=== PATIENT | female | born 1980 | race Caucasian/White ===

== ENCOUNTER 2016-11-18 21:03 | Emergency (ER) | payer BC, MEDICAID ==
[~2016-11-18] VITALS: Ht 180.3 cm; Wt 136.1 kg
[~2016-11-18 21:03] MED LIST: HYDR12.570 PO; MORP15TA PO; OXYC-272 PO; TOPI100T PO; TRAZ-144 PO
--- OUTSIDE RECORDS SUMMARY | 2016-11-18 21:09 | XMS REPORT | Continuity of Care Document ---
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 Active Medical 02/02/2014 [facility] Hypertension Active Medical 11/29/2013 [facility] Depression. 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/29/2013 [facility] Myofascial pain Active Medical 02/24/2014 [facility] Lumbar post-laminectomy syndrome Active Medical 2014 [facility] Medications Medication Details Route Status Patient Instructions Ordering Provider Order Date Source Zantac Documented 02/07/2014 [facility] ibuprofen Documented 02/07/2014 [facility] Duragesic-12 transdermal film, extended release Active BLACHAR 02/07/2014 [facility] Percocet 10/325 oral tablet Active BLACHAR 02/07/2014 [facility] Celexa 40 mg oral tablet PO Active BLACHAR 02/07/2014 [facility] Celexa 20 mg oral tablet Discontinued BLACHAR 12/22/2013 [facility] trazodone 50 mg oral tablet PO Documented as needed 11/29/2013 [facility] Topamax 100 mg oral tablet PO Documented 11/29/2013 [facility] Percocet 10/325 PO Discontinued 1 to 2 tabs as needed 11/29/2013 [facility] PO [facility] Allergies, Adverse Reactions, Alerts Substance Category Reaction Severity Reaction type Status Date Reported Comments Source NKA Datatype(AL1.2)-Drug Allergy ACTIVE 05/26/2015 [facility] Immunizations Immunization Date Given Site Status Last Updated Comments Source no immunization 11/29/2013 Immunization, History completed [facility] diphtheria/pertussis, acel/tetanus Tdap 11/29/2008 Immunization, History completed [facility] Results Order Name Results Value Reference Range Date Interpretation Comments Source Office/Clinic Notes Office/Clinic Notes [facility] [address] [address] [address] [place] [address] PATIENT: PAM NUÑEZ MR #: [id number] : 1980 DATE SEEN: 05/26/2015 Chief Complaint Patient here for follow up due to low back pain. She is now having neck pain. Rates pain 7/10 throbbing. History of Present Illness This is a 34-year-old female complaining of chronic low back pain. She is now starting to have neck pain over the last 2 months. She tells me she slept on a cough wrong one night, and since then she has been having neck pain. She denies radiation of the pain into the upper extremities, but she does note let arm numbness. Verbal analog score is a 7/10. She is on MS Contin 15 mg 3 times a day as well as Percocet 10 mg every 4 hours as needed. She does note some distal to lower extremity swelling and has asked if I would write for her water pill. She is not taking hydrochlorothiazide any longer. She has yet to find a primary care physician. She denies any chest pain, shortness of breath, nausea, vomiting or diarrhea. She has tried alternating heat and ice to the neck, but it has not given her any relief. She has been taking [id number] ibuprofen as well, which also has not given her much relief. She described her pain as a throbbing sensation, made worse with physical activity and movement. Not much makes it better. She does note constipation on her chronic pain medication regimen, but it is controlled with Dulcolax suppositories. Pain Assessment Cognitive Status: Independent, decisions consistent/reasonable Intensity: 7 Location: Other: neck and low back Acceptable Intensity: 0 Scale Type: Santana-Peralta Faces Pain Scale Time Pattern: Constant Aggravating Factors: Movement Alleviating Factors: Medications, Rest Interventions: Medications, Rest Pain Effects on Appetite: None Pain Effects on Concentration: Mild Pain Effects on Daily Life: Moderate Pain Effects on Emotions: Mild Pain Effects on Relationships: None Pain Effects on Sleep: Moderate Pain Effects on Work/School: Moderate Pain Best: 6 Pain Worst: 10 Review of Systems Allergies NKA Current Medications Celexa 40 mg oral tablet (citalopram), 40 mg, Daily hydrochlorothiazide 25 mg oral tablet (hydrochlorothiazide), 25 mg, Every 24 hours ibuprofen, PRN, MS Contin 15 mg/12 hr oral tablet, extended release (morphine), 1 Tab PO in a.m. and 2 Tabs PO at Bedtime, Comment: may fill 05/09/15 Percocet 10/325 oral tablet (acetaminophen-oxycodone), 1 Tab, PRN, Every 4 hours , Comment: 28 day scriptsmay fill 04/26/15 Topamax 100 mg oral tablet (topiramate), 100 mg, At bedtime trazodone 50 mg oral tablet (trazodone), 50 mg, At bedtime Zantac (ranitidine), PRN, Social History Alcohol Use: Denies Caffeine Use: Current Caffeine Type: Soda, Tea Current Tobacco Usage: Current Recreational Drug Use: Denies Smoking Status: Smokes daily Physical Examination TEMP BP Pulse RR MAP O2 Sat 37.0 175/96 82 16 122.33 Blood Pressure Location: Left arm Weight Height BMI BSA 177 cm A well developed, well nourished female in no apparent distress. She is alert and oriented x3. She is obese. Strength is intact for the upper and lower extremities bilaterally. She is noted to have neck spasm. There is +2 pitting edema to the distal lower extremities. Impression 1. Postlaminectomy syndrome, lumbar region (722.83). 2. Lower extremity edema. 3. Myofascial neck pain. 4. Lumbar spondylosis. Plan Medication changes this visit: Refill MS Contin 15 mg/12 hr oral tablet, extended release, See Instructions, Quantity : 84, Refills: 0, Comment: may fill 08/01/15 Percocet 10/325 oral tablet, 1 Tab, PRN, Q4H, Quantity: 168, Refills: 0, Comment : 28 day scripts MAY FILL 07/21/15 1. I think it would be reasonable to put her on Baclofen. 2. I will ask her to see a primary care physician, since she needs to have her general health issues addressed. The patient also has hypertension, depression and obesity. 3. Unfortunately, I will not be able to keep seeing this patient on an ongoing basis for her pain management care. Patient now lives in [facility] which is over 2 hours from [place], [place]. She actually lives about 40-45 minutes from [place], [place], where there are pain clinics present. She also must pass by 4 or 5 pain clinics to get to us through [place]. I do not feel comfortable managing her pain care from that far away. I have offered to provide her with weaning prescriptions, but she does not want to do so. I will give her 3 months postdated of her opioid medications and will not see her again, unless she moves closer to us. TR: [id number] FÉLIX#: [id number] [Electronically Signed on 06.01.2015 02:50 PM] Chris Randle MD </br> 05/26/2015 [Electronically Signed on 06.01.2015 02:50 PM] Chris Randle MD [facility] Office/Clinic Notes Office/Clinic Notes [facility] [address] [place] [address] [address] [place] [address] PATIENT: PAM NUÑEZ MR #: [id number] : 1980 DATE SEEN: 02/01/2015 Chief Complaint Patient is here today to follow up on her back pain. She rates her pain 7/10 sharp pain. History of Present Illness This is a pleasant 34-year-old female chiefly complaining of back pain. Verbal analog score is a 7/10. She continues to be on MSContin 15 mg 1 in the morning and 2 at night, as well as Percocet 10 mg every 4 hours as needed and Topamax. She feels these do provide the patient with improved analgesia and improved functioning with ADLs. Pain Assessment Cognitive Status: Independent, decisions consistent/reasonable Intensity: 7 Location: Lower back Acceptable Intensity: 5 Scale Type: 0-10 Pain scale Time Pattern: Constant Quality: Sharp Radiating: None Associated Symptoms: None Aggravating Factors: All activity, Movement Alleviating Factors: Medications, Rest Interventions: Medications, Rest, Repositioning Pain Effects on Appetite: None Pain Effects on Concentration: None Pain Effects on Daily Life: Moderate Pain Effects on Emotions: Moderate Pain Effects on Relationships: None Pain Effects on Sleep: Moderate Pain Effects on Work/School: None Pain Best: 4 Pain Worst: 10 Allergies NKA Current Medications Celexa 40 mg oral tablet (citalopram), 40 mg, Daily hydrochlorothiazide 25 mg oral tablet (hydrochlorothiazide), 25 mg, Every 24 hours ibuprofen, PRN, MS Contin 15 mg/12 hr oral tablet, extended release (morphine), 1 Tab PO in a.m. and 2 Tabs PO at Bedtime, Comment: may fill 01/17/15 Percocet 10/325 oral tablet (acetaminophen-oxycodone), 1 Tab, PRN, Every 4 hours , Comment: MAY FILL 01/04/15 Topamax 100 mg oral tablet (topiramate), 100 mg, At bedtime trazodone 50 mg oral tablet (trazodone), 50 mg, At bedtime Not taking Zantac (ranitidine), PRN, Social History Alcohol Use: Denies Caffeine Use: Current Caffeine Type: Soda, Tea Current Tobacco Usage: Current Education: High school Recreational Drug Use: Denies Smoking Status: Smokes daily Physical Examination TEMP BP Pulse RR MAP O2 Sat 37.0 150/85 75 18 106.67 Blood Pressure Location: Left arm Weight Height BMI BSA 177 cm The patient is well developed, well nourished and in no apparent distress. Alert and oriented x3. Strength is intact for the upper and lower extremities bilaterally. Impression 1. Postlaminectomy syndrome, lumbar region (722.83). 2. Lumbar spondylosis. 3. Obesity. Plan 1. At this time, we will continue the patient's usual pain medication regimen. 2. We will see the patient back in 3 months and assess the patient's progress at that time. All questions were answered otherwise. Medication changes this visit: Refill Celexa 40 mg oral tablet, 40 mg, daily, Quantity: 30, Refills: 5 MS Contin 15 mg/12 hr oral tablet, extended release, See Instructions, Quantity : 84, Refills: 0, Comment: may fill 04/11/15 Percocet 10/325 oral tablet, 1 Tab, PRN, Q4H, Quantity: 168, Refills: 0, Comment : 28 day scripts may fill 03/29/15 TR: JULIUS FÉLIX#: [id number] [Electronically Signed on 02.03.2015 03:26 PM] Chris Randle MD </br> 02/01/2015 [Electronically Signed on 02.03.2015 03:26 PM] Chris Randle MD [facility] Office/Clinic Notes Office/Clinic Notes [facility] [address] [place] [phone] PATIENT: PAM NUÑEZ MR #: [id number] : 1980 DATE SEEN: 11/03/2014 Chief Complaint Patient in today for a followup on pain in low back. Rates pain 6/10, aching. History of Present Illness This is a pleasant 33-year-old female complaining of chronic low back pain. Verbal analog score is a 6/10. She continues to be on Percocet 10 mg every 4 hours as needed, which does provide her with improved analgesia and improved function with ADLs. She is also Topamax at bedtime and MS Contin 15 mg in the morning and 30 mg at night. She states overall, her current pain medication regimen does provide her with improved analgesia and improved function with ADLs. Pain Assessment Cognitive Status: Independent, decisions consistent/reasonable Intensity: 6 Location: Lower back Laterality: Bilateral Acceptable Intensity: 3 Scale Type: Santana-Peralta Faces Pain Scale Time Pattern: Constant Onset: Gradual Quality: Aching Radiating: None Associated Symptoms: None Aggravating Factors: All activity, Lying down, Sitting, Standing, Walking Alleviating Factors: Medications Interventions: Medications Pain Effects on Appetite: None Pain Effects on Concentration: None Pain Effects on Daily Life: Moderate Pain Effects on Emotions: Mild Pain Effects on Relationships: None Pain Effects on Sleep: Moderate Pain Effects on Work/School: Mild Pain Best: 5 Pain Worst: 10 Allergies NKA Current Medications Celexa 40 mg oral tablet (citalopram), 40 mg, Daily Duragesic-12 transdermal film, extended release (fentanyl), 1 Patch, Every 72 hours, Comment: 2 week trial script, next appt 02/22/14 in [place] Not taking hydrochlorothiazide 25 mg oral tablet (hydrochlorothiazide), 25 mg, Every 24 hours ibuprofen, PRN, Percocet 10/325 oral tablet (acetaminophen-oxycodone), 1 Tab, PRN, Every 4 hours , Comment: May fill 02/15/14 to 02/22/14 appt in [place] Topamax 100 mg oral tablet (topiramate), 100 mg, At bedtime trazodone 50 mg oral tablet (trazodone), 50 mg, At bedtime Zantac (ranitidine), PRN, Social History Alcohol Use: Denies Caffeine Use: Current Caffeine Type: Soda, Tea Current Tobacco Usage: Current Recreational Drug Use: Denies Smoking Status: Smokes daily Physical Examination TEMP BP Pulse RR MAP O2 Sat 36.6 147/89 101 20 108.33 Blood Pressure Location: Left arm Weight Height BMI BSA 177 cm A well developed, well nourished, obese female in no apparent distress. She is alert and oriented x3. Strength is intact for the upper and lower extremities bilaterally. Impression 1. 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 Lumbar Spondylosis. (721.3) 4. Myofascial pain (729.1) 5. Post lumbar laminectomy syndrome. 6. Depression. Plan Medication changes this visit: Refill Percocet 10/325 oral tablet, 1 Tab, PRN, Q4H, Quantity: 168, Refills: 0, Comment : MAY FILL 01/04/15 Stopped Duragesic-12 transdermal film, extended release, 1 Patch, Q72H, Quantity: 5, Refills: 0, Comment: 2 week trial script, next appt 02/22/14 in [place] At this time, will continue her usual pain medication regimen. We are now starting to see her here in our office at [place], [place], since she has moved to [place], [place]. Will see her back in 3 month for further care. TR: [id number] FÉLIX#: [id number] [Electronically Signed on 11.09.2014 03:43 PM] Chris Randle MD </br> 11/03/2014 [Electronically Signed on 11.09.2014 03:43 PM] Chris Randle MD [facility] Office/Clinic Notes Office/Clinic Notes [address] [address] RE: PAM NUÑEZ MR #: [id number] : 1980 DATE SEEN: 08/16/2014 This is a pleasant 33-year-old female complaining of low back pain. Verbal analog score is a 6/10. She describes the pain as a throbbing sensation. The patient states that cold and weather changes as well as physical activity and movement exacerbates the pain. It is made better with rest and pain medication as well. She is on Topamax, Trazodone, Celexa, MS Contin 15 mg every 8 hours and Percocet 10 mg up to 6 a day p.r.n. She denies any side effects to her pain medication regimen. It does provide her with improved analgesia and improved function with ADLs. However, she states her recent addition of MS Contin initially did help with her pain, but now it is not as effective as it once was. She tells me she recently moved to [place], [place] and now wants to be seen at [place], [place] in our office there. ALLERGIES: NO KNOWN DRUG ALLERGIES. PAST SOCIAL HISTORY: She smokes half pack of cigarettes a day. Denies alcohol use. REVIEW OF SYSTEMS: Neuro as above. Respiratory, cardiac, GI, psych negative. PHYSICAL EXAMINATION: Well-developed, well-nourished female in no apparent distress. She is alert and oriented x3. Strength intact in upper and lower extremities bilaterally. ASSESSMENT: 1. Lumbar spondylosis. 2. Post-lumbar laminectomy syndrome. 3. Myofascial low back pain. PLAN: 1. I would ask her to change MS Contin dosing to 15 mg in the morning, 30 mg at night, which may give her improved pain control. Monitor for sedation, constipation, and nausea. 2. We will continue Percocet at current dosing levels and the rest of her pain medication at current dosing levels. 3. We will see the patient back in [place] in the near future and assess her progress at that time. Dictated By: CHRIS RANDLE MD DICTATED BY: Chris Randle. cc: [facility] - Dr Randle TR: [id number] DR: 08/16/2014 09:17 DE: 08/16/2014 10:49 JOB#: [id number] [Electronically Signed on 08.18.2014 05:22 PM] Chris Randle MD </br> 08/16/2014 [Electronically Signed on 08.18.2014 05:22 PM] Chris Randle MD [facility] Office/Clinic Notes Office/Clinic Notes [address] [address] RE: PAM NUÑEZ MR #: [id number] : 1980 DATE SEEN: 04/12/2014 This is a pleasant 33-year-old obese female complaining of chronic low back pain. Verbal analog score is a 5/10. She describes the pain as a tender sensation. It is made worse with walking and standing for any length of time. It is made better with pain medication and rest. She continues to be on Percocet 10 mg up to 6 a day p.r.n., Duragesic patches 25 mcg to be changed every 3 days, Celexa, trazodone, and Topamax. She tells me that Duragesic patches are not sticking well at all. One of these fell off her this morning. She has tried tape over these, but the tape irritates her skin, and these will not stick to her. Currently, she has an upper respiratory infection with coryza and congestion. She denies any productive cough, fever, chills, nausea, vomiting , or diarrhea. ALLERGIES: NO KNOWN DRUG ALLERGIES. PAST SOCIAL HISTORY: She smokes approximately half pack of cigarettes a day. Denies alcohol use. REVIEW OF SYSTEMS: Neuro as above. Respiratory, cardiac, GI, and psych negative. PHYSICAL EXAMINATION: Well-developed, well-nourished, obese female in no apparent distress. She is alert and oriented x3. Strength intact to lower extremities bilaterally. ASSESSMENT: 1. Lumbar spondylosis. 2. Post-lumbar laminectomy syndrome. 3. Myofascial low back pain. PLAN: 1. We will discontinue Duragesic patch secondary to inability to make the patches stick to her skin. I have asked her to return the remaining patches for destruction. 2. In the meantime, we will start her on low-dose MS Contin mop. Monitor for sedation, constipation, and nausea. She can continue Percocet for breakthrough pain. We will continue the rest of her usual pain medication regimen. We will see the patient back in the near future and assess her progress at that time. All questions have been answered otherwise. Dictated By: CHRIS RANDLE MD DICTATED BY: Chris Randle cc: [facility] - Dr Randle TR: [id number] DR: 04/12/2014 16:50 DE: 04/13/2014 00:21 JOB#: [id number] [Electronically Signed on 04.16.2014 04:17 PM] Chris Randle MD </br> 04/12/2014 [Electronically Signed on 04.16.2014 04:17 PM] Chris Randle MD [facility] Amb Nurs Intake Event Amb Nurs Intake Event 2013 [facility] Procedure Reports Procedure Reports [facility] [address] [place] [address], [address] [place] [address] [facility] PATIENT: PAM NUÑEZ MR #: [id number] PCP: None, Stated REFERRING PHYSICIAN: Dina Nj MD : 1980 DATE SEEN: 02/24/2014 PROCEDURE REPORT Procedure: Ultrasound-guided injection of the right lumbar region for myofascial pain. Pre-procedure Diagnosis: Lumbar myofascial pain and trigger point tenderness. Post-procedure Diagnosis: Lumbar myofascial pain and trigger point tenderness. Informed Consent: I discussed the risks, benefits, alternatives. Following denial of allergy and review of potential side effects and complications including but not necessarily limited to infection, allergic reaction, local tissue breakdown, systemic side effects of corticosteroids, elevation of blood glucose, injury to soft tissue and/or nerves. Specifically discussed risks of tissue breakdown. All questions were answered and consent was given. The patient verbalized understanding. Ultrasound Guidance: The use of direct ultrasound visualization of the needle was indicated to increase patient safety, improve clinical effectiveness and allow for higher diagnostic specificity when evaluating for the effectiveness of the injection. Procedure details: The procedure was carried out under sterile technique. After the area was cleaned the 3.5-inch 25-gauge needle was directed towards the PSIS (posterior superior iliac spine) region in the right lower lumbar region. The L4 and L5 paraspinals were injected as well as the periligamentous region of the PSIS area. Following negative aspiration, a mixture of 1 mL of Kenalog with 3 mL of 1% lidocaine was injected. The patient tolerated the procedure without complication and was observed briefly before leaving. Patient will call us to let us know how she has responded to this injection. Diagnosis: Ultrasound-guided injection of the lumbar myofascial pain and trigger point tenderness. TR: ADA FÉLIX#: [id number] [Electronically Signed on 03.02.2014 08:16 AM] Dina Nj MD </br> 02/24/2014 [Electronically Signed on 03.02.2014 08:16 AM] Dina Nj MD [facility] Office/Clinic Notes Office/Clinic Notes [address] [address] RE: PAM NUÑEZ MR #: [id number] : 1980 DATE SEEN: 02/22/2014 Pam returned to the office chief complaining of chronic low back pain. Verbal analog score is a 6/10. She describes the pain as a throbbing sensation. It is made better with rest and pain medication is made worse with physical activity and weather changes. She has seen Dr. Nj recently who is going to do trigger point injections this week's time under ultrasound guidance as I understand. She is on Percocet 10 mg 6 a day p.r.n., trazodone, Topamax, Celexa and Duragesic patch 12 mcg to be changed every 3 days. She states that she does well, and with this medication does provide her with good analgesia until it wears off after about a day and a half. She denies any side effects. ALLERGIES: NO KNOWN DRUG ALLERGIES. PAST SOCIAL HISTORY: She smokes half pack of cigarettes a day. Denies alcohol use. REVIEW OF SYSTEMS: Neuro, respiratory, cardiac, GI, psych negative. PHYSICAL EXAMINATION: Well developed, well-nourished, obese female in no apparent distress. She is alert and oriented x3. Strength intact to lower extremities bilaterally. ASSESSMENT: 1. Myofascial low back pain. 2. Lumbar spondylosis. 3. Post-lumbar laminectomy syndrome. PLAN: 1. We will increase Duragesic patch to 25 mcg to be changed every 3 days. Monitor for sedation, constipation, and nausea. 2. We will continue the rest of her usual pain medication regimen. We will see the patient back in the near future and assess the patient's progress at that time. All questions have been answered otherwise. Dictated By: CHRIS RANDLE MD DICTATED BY: Chris Randle cc: [facility] - Dr Randle TR: [id number] DR: 02/22/2014 16:02 DE: 02/22/2014 21:54 JOB#: [id number] [Electronically Signed on 03.12.2014 01:48 PM] Chris Randle MD </br> 02/22/2014 [Electronically Signed on 03.12.2014 01:48 PM] Chris Randle MD [facility] Coding Summary Coding Summary CODING DATE: 02/21/2014 [facility] STATUS: Home PAYOR: Medicaid ADMIT DX: REASON FOR VISIT DX: 724.2 LUMBAGO FINAL DX: PRINCIPAL: 722.52 Degeneration of Lumbar or Lumbosacral Intervertebral Disc SECONDARY: PROCEDURES DOCTOR NAME DATE NOTE: The code number assigned matches the documented diagnosis and / or procedure in the patient's chart. However, the narrative phrase printed from the coding software may appear abbreviated, or result in slightly different terminology. Coded By: Taya Vega Date Saved: 02/21/2014 02:37 pm 02/21/2014 [facility] DX Lumbar Complete W/Bending DX Lumbar Complete W/ Bending PAM NUÑEZ LUMBAR SPINE INDICATION: Low back pain. Multiple images of the lumbar spine have been obtained with flexion and extension views. Bone density and the pedicles are intact. There is a small rudimentary rib on the right at T12. There is a transitional segment with rudimentary L5-S1 disk. The L4-5 disk is narrowed with osteophytes. Minimal anterior lipping is identified at L2 and 3. No subluxation is seen across flexion and extension views. IMPRESSION: 1. No wedging or subluxation. 2. Marked narrowing of the L4-5 disk, rudimentary L5-S1 disk. Final Report Dictated By: Juan M Shaw MD Dictated Dt/tm: 02/07/2014 15:05 Signed By: Juan M Shaw MD Signed Dt/tm: 02/07/2014 15:25 Transcribed By: CHRISTIE Transcribed Dt/tm: 02/07/2014 15:23</br> Clinical History Current History LBP x3 years, Rt leg tingling/numbness Previous History/Surgery 2005, 2010 lumbar sx 02/07/2014 Final Report Dictated By: Juan M Shaw MD Dictated Dt/tm: 02/07/2014 15:05 Signed By: Juan M Shaw MD Signed Dt/tm: 02/07/2014 15:25 Transcribed By: CHRISTIE Transcribed Dt/tm: 02/07/2014 15:23 [facility] Care Ambulatory Depart Summary Ambulatory Depart Summary [facility] [address] [address] [address] [place] [id number] PERSON INFORMATION Name PAM NUÑEZ Age 33 Years 1980 12:00 AM Sex Female Language Tamazight PCP None, Stated Marital Status Time Zone Visit Id Visit Reason EVAL FOR USGI LUMBAR/ Specialty Enc Type [facility] Med Service OUTPT-Outpatient/Hospital Referred by [facility] Discharge Process Discharge Tracking Id Checkout Checkin Acuity Dispo Type Arrival 02/07/2014 12:47 PM Reg Status LOS Address: [facility] [address] PHYS DOC NOTES PROVIDER INFORMATION VITALS INFORMATION Height: 5ft 9.7in Weight: 339.07 lbs (BMI: 49.1) Temp: 99.5 F Heart Rate: 111 Respiratory: 16 O2 Sat: BP: 150/89 LOCATION INFORMATION Arrival Nurse Unit Room Bed ORDERS INFORMATION Start Time Order Type Status Stop Time Provider 02/07/2014 1:25 PM Follow Up -Request Patient Care -Request Completed 02/07/2014 1:41 PM Dina Nj MD MEDICAL INFORMATION Allergy Info: NKA HOME MEDICATIONS Celexa 40 mg oral tablet 40 mg, Oral, Daily, 2 Refills Duragesic-12 transdermal film, extended release 1 Patch, Topical, Every 72 hours, 2 week trial script, next appt 02/22/14 in [place] ibuprofen , as needed for pain Percocet 10/325 oral tablet 1 Tab, Oral, Every 4 hours, as needed for pain, May fill 02/15/14 to 02/22/14 appt in [place] Topamax 100 mg oral tablet 100 mg, Oral, At bedtime trazodone 50 mg oral tablet 50 mg, Oral, At bedtime, as needed Zantac , as needed, for Indigestion DISCHARGE INFORMATION Discharge Disposition: Discharge Location: PATIENT EDUCATION INFORMATION Instructions: CHRONIC PAIN Follow up: With: Address: When: Please arrive 20 minutes prior to appointment. 02/24/14 15:00:00 Comments: With: Address: When: Dina Nj [facility], [address] [place] [address], [place], [place] [id number] Business (1) Comments: DIAGNOSIS Myofascial pain 02/07/2014 [facility] Quality of Life Scale Score Grid Quality of Life Scale Score Grid 7 02/07/2014 [facility] Amb Nurs Intake Event Amb Nurs Intake Event 2013 [facility] Ambulatory Depart Summary Ambulatory Depart Summary [facility] [address] [place] [address] [address] [place] [address] PERSON INFORMATION Name PAM NUÑEZ Age 33 Years 1980 12:00 AM Sex Female Language Tamazight PCP None, Stated Marital Status Time Zone N [id number] Visit Id Visit Reason FOLLOW UP, TS Specialty Enc Type [facility] Med Service OUTPT-Outpatient/Hospital Referred by [facility] Discharge Process Discharge Tracking Id Checkout Checkin Acuity Dispo Type Arrival 02/07/2014 10:32 AM Reg Status LOS Address: [address] [place] [address] PHYS DOC NOTES PROVIDER INFORMATION VITALS INFORMATION Height: 5ft 9.7in Weight: Temp: 98.2 F Heart Rate: 98 Respiratory: 20 O2 Sat: BP: 158/81 LOCATION INFORMATION Arrival Nurse Unit Room Bed ORDERS INFORMATION Start Time Order Type Status Stop Time Provider 02/07/2014 10:47 AM Nursing PBB Level 2 (83-61)- [address] CFPM Evaluation and Management Completed 02/07/2014 10:47 AM Chris Randle MD MEDICAL INFORMATION Allergy Info: NKA HOME MEDICATIONS Celexa 40 mg oral tablet 40 mg, Oral, Daily, 2 Refills, [facility] Duragesic-12 transdermal film, extended release 1 Patch, Topical, Every 72 hours, 2 week trial script, next appt 02/22/14 in [place], Printed Percocet 10/325 oral tablet 1 Tab, Oral, Every 4 hours, as needed for pain, May fill 02/15/14 to 02/22/14 appt in [place], Printed Topamax 100 mg oral tablet 100 mg, Oral, At bedtime trazodone 50 mg oral tablet 50 mg, Oral, At bedtime, as needed DISCHARGE INFORMATION Discharge Disposition: Discharge Location: PATIENT EDUCATION INFORMATION Instructions: Back Basics: A Healthy Spine Follow up: With: Address: When: Chris Randle [address] [address] [address] [place], [place] [id number] Business (1) [facility], [address] [place] [address], [place] [address] Business (1) 02/22/2014 13:30:00 Comments: FOLLOW UP IN [place] DIAGNOSIS Lumbar Spondylosis. 02/07/2014 [facility] Ambulatory Depart Summary Ambulatory Depart Summary [facility] [address] [address] [address] [place] [address] PERSON INFORMATION Name PAM NUÑEZ Age 33 Years 1980 12:00 AM Sex Female Language Tamazight PCP None, Stated Marital Status Time Zone Visit Id Visit Reason FOLLOW UP, TS Specialty Enc Type [facility] Med Service OUTPT-Outpatient/Hospital Referred by [facility] Clinic Discharge Process Discharge Tracking Id Checkout Checkin Acuity Dispo Type Arrival 02/07/2014 10:32 AM Reg Status LOS Address: [address] [place] [address] PHYS DOC NOTES PROVIDER INFORMATION VITALS INFORMATION Height: 5ft 9.7in Weight: Temp: 98.2 F Heart Rate: 98 Respiratory: 20 O2 Sat: BP: 158/81 LOCATION INFORMATION Arrival Nurse Unit Room Bed ORDERS INFORMATION Start Time Order Type Status Stop Time Provider 02/07/2014 10:47 AM Nursing PBB Level 2 (2140)- [address] CFPM Evaluation and Management Completed 02/07/2014 10:47 AM Chris Randle MD MEDICAL INFORMATION Allergy Info: NKA HOME MEDICATIONS Celexa 20 mg oral tablet 20 mg, Oral, Daily, next script increase to 40mg daily Percocet 10/325 1 Tab, Oral, Every 4 hours, 1 to 2 tabs as needed Topamax 100 mg oral tablet 100 mg, Oral, At bedtime trazodone 50 mg oral tablet 50 mg, Oral, At bedtime, as needed DISCHARGE INFORMATION Discharge Disposition: Discharge Location: PATIENT EDUCATION INFORMATION Instructions: Back Basics: A Healthy Spine Follow up: With: Address: When: Chris Randle [address] [address] [address] [place] [address] Business (1) [facility], [address] [place] [address], [place] [address] [facility] (1) 02/22/2014 13:30:00 Comments: FOLLOW UP IN [place] DIAGNOSIS Lumbar Spondylosis. 02/07/2014 [facility] Office/Clinic Notes Office/Clinic Notes [facility] [address] [facility] [address] [place] [address] PATIENT: PAM NUÑEZ MR #: [id number] PCP: None, Stated REFERRING PHYSICIAN: Chris Randle MD : 1980 DATE SEEN: 02/07/2014 Chief Complaint Pam is here today for an evaluation for low back pain. History of Present Illness Ms. Nuñez is a 33-year-old female with a complicated spine history. She had a surgery in 2005 for a herniated disc in the lumbar spine and then she had a surgery in 2010 again for a herniated disc. She has seen a Dr. Huang, in [place], [place], for this and followed up with him because she was continuing to have pain in the lumbar spine following the surgery. He did not feel there was any other operative measures. A repeat MRI of her back showed some facet arthropathy, however there was no recurrent herniations and therefore she was referred to Chris Randle MD, who attempted to treat the facet component of her pain. She had tried bilateral facet joint injections , but she got no relief from those. She has tried a variety of muscle relaxants for myofascial discomfort as well and that has not seemed to help. She has tried physical therapy, but she says she would be interested in some water exercises, she is trying to do some of the land based physical therapy exercises that have been provided to her. She has attempted to lose weight as well. None of these things have seemed to help her pain. She has been started on Cymbalta without much effect. Because she has significant component of myofascial discomfort, Dr. Randle recommended a referral to see if treatment of the myofascial pain might help. Patient denies any lower extremities symptoms, weakness, numbness, or tingling currently, but her pain is quite severe and it is axial. It is band like, worse on the right than the left. It is not seeming to be controlled with the Percocet , Duragesic, ibuprofen, or Topamax medications that she has tried. She has tried also topical medicines. Her pain is rated at 7/10. QOL (quality of life) is 7/10. PEG scores are 7, 7, and 8 respectively. There are no red flag signs or symptoms present. Pain Assessment Cognitive Status: Independent, decisions consistent/reasonable Intensity: 7 Location: Lower back Quality: Stabbing, Other: twisting Review of Systems Cardiovascular: Swelling of hands or feet Musculoskeletal: Back Pain, Muscle or joint pain Neurological: Numbness, Tingling Pertinent negative for the following system(s): Constitutional, HEENT, Respiratory, GI, , [employer], Integumentary, Hematologic, Endocrine, Psychiatric Allergies NKA Current Medications Celexa 40 mg oral tablet (citalopram), 40 mg, Daily Duragesic-12 transdermal film, extended release (fentanyl), 1 Patch, Every 72 hours, Comment: 2 week trial script, next appt 02/22/14 in [place] ibuprofen, PRN, Percocet 10/325 oral tablet (acetaminophen-oxycodone), 1 Tab, PRN, Every 4 hours , Comment: May fill 02/15/14 to 02/22/14 appt in [place] Topamax 100 mg oral tablet (topiramate), 100 mg, At bedtime trazodone 50 mg oral tablet (trazodone), 50 mg, At bedtime Zantac (ranitidine), PRN, Problems and Past Medical History Active Depression. Hypertension LBP (Low Back Pain) Lumbar Spondylosis.: Onset on 11/29/2013. Under care of sign painter Family History Crohn disease.. Sister/Brother Lung cancer.. Grandparent Procedure History 2 back surgeries 2 c sections Social History Alcohol Use: Denies Caffeine Use: Current Caffeine Type: Soda, Tea Cigarette Use Packs/Day: 0.5 pack per day Current Tobacco Usage: Current Recreational Drug Use: Denies Smoking Status: Smokes daily Tobacco Type: Cigarettes Physical Examination TEMP BP Pulse RR MAP O2 Sat 37.5 150/89 111 16 109.33 Blood Pressure Location: Left arm Oxygen Therapy: Room air Weight Height BMI BSA 153.8 kg (339.07 lbs) 177 cm 49.1 kg/m2 2.7499 m2 Scale: Standing digital Vitals: As noted above. General: This is an obese female in no acute distress. Mental status: Alert and oriented x3, conversant with appropriate mood and affect. NEUROLOGIC: Gait/Gross Motor: Gait reveals normal tiffany and stride. Heel and toe walking are normal. Balance: Grossly normal including tandem gait, and Romberg testing. Coordination: Coordination is grossly normal in the upper and lower extremities , including finger nose finger and rapid alternating movements. Strength: Major muscle groups of the bilateral upper and lower limbs demonstrate normal strength, bulk and tone. Sensation: Sensation is grossly intact to light touch in the lower extremities. Reflexes: Physiological without evidence of pathological reflexes (including Babinski response). MUSCULOSKELETAL: Spine: There are no gross axial deformities. Percussion of the spine is negative. She does have a prior well healed surgical scar. Tenderness to palpation over the right PSIS region. She is markedly tender there. She has pain with forward flexion, but extension seems to be worse as well. Right-sided bending is also painful for her. Inspection/Palpation: Inspection and palpation of the limbs and spine are unremarkable. Range of Motion: Range of motion is within functional limits in the major joints of the bilateral upper and lower limbs without obvious instability or laxity, including the hips. Joints: There are no obvious effusions, instability, or laxity in the major joints of the bilateral upper or lower limbs. Lymph: Palpation of lymph nodes was unremarkable bilaterally. Skin: Inspection of the skin is negative for erythema, breakdown, or concerning lesions of the limbs, neck, and spine. Pulmonary: Breathing is unlabored and without use of accessory muscles. DATA: Pertinent labs, imaging studies and medical history were reviewed. I reviewed her prior MRI report showing only mild facet arthropathy, no significant stenosis. Impression 1. Myofascial pain (729.1) 2. LBP (Low Back Pain) (724.2) Plan Orders this visit: Follow Up -Request 1. I would recommend treatment of myofascial component of her pains and she has been refractory to the other treatments. I discussed with her some muscle relaxants, such as tizanidine, however it can cause arrhythmias in combination with Celexa. She feels that baclofen is too strong, so we will hold off. 2. I would recommend an ultrasound guided injection into the right lower lumbar region. 3. We will provided her with some of the water exercises that she can do on her own, as she does have a pool. I also spent a good deal of time discussing with her, the value of keeping the weight off and regularly walking. 4. I would like to get a flexion and extension x-ray of her spine to exclude any instability. Please feel free to call me with any questions. Thank you very much for this consultation. Sincerely, Dina Nj MD CC: Chris Randle MD TR: [id number] FÉLIX#: [id number] [Electronically Signed on 02.10.2014 03:03 PM] Dina Nj MD </br> 02/07/2014 [Electronically Signed on 02.10.2014 03:03 PM] Dina jN MD [facility] Amb Nurs Intake Event Amb Nurs Intake Event 2013 [facility] Office/Clinic Notes Office/Clinic Notes [facility] [address] [place] [address] [address] [place] [id number] PATIENT: PAM NUÑEZ MR #: [id number] : 1980 DATE SEEN: 02/07/2014 Chief Complaint Patient in today for a follow up on pain in low back and right leg. Rates pain 7 /10 stabbing. History of Present Illness This is a 33-year-old obese female chiefly complaining of low back and right leg pain. VAS (verbal analog score) is a 7/10. It is a stabbing sensation that is made worse with physical activity and movement; it is made somewhat better with pain medication and rest. The patient is on percocet 10 mg every 4 hours as needed, as well as Celexa 20 mg daily, Topamax 100 mg at bedtime and trazodone 50 mg at bedtime. She denies any side effects to her pain medication regimen. It does give her some degree of pain relief, although she does experience end of dose failure on percocet. She is seeing Sancho, our application packaging specialist, now for direction regarding a home exercise program. She does have an appointment to see Dr. Dina Nj today at 12:45. Physical activity and movement exacerbate her pain; it is made better with pain medication and rest. Pain Assessment Cognitive Status: Independent, decisions consistent/reasonable Intensity: 7 Location: Lower back Acceptable Intensity: 4 Scale Type: Santana-Peralta Faces Pain Scale Time Pattern: Constant Onset: Gradual Quality: Stabbing Radiating: Right Radiation Location: Upper leg, Lower leg Associated Symptoms: None Aggravating Factors: All activity, Movement, Standing, Walking Alleviating Factors: Medications, Rest Interventions: Medications, Rest Pain Effects on Appetite: None Pain Effects on Concentration: Mild Pain Effects on Daily Life: Moderate Pain Effects on Emotions: Mild Pain Effects on Relationships: None Pain Effects on Sleep: Moderate Pain Effects on Work/School: Moderate Pain Best: 5 Pain Worst: 10 Allergies NKA Current Medications Celexa 20 mg oral tablet (citalopram), 20 mg, Daily, Comment: next script increase to 40mg daily Percocet 10/325 (acetaminophen-oxycodone), 1 Tab, Every 4 hours Topamax 100 mg oral tablet (topiramate), 100 mg, At bedtime trazodone 50 mg oral tablet (trazodone), 50 mg, At bedtime Social History Alcohol Use: Denies Caffeine Use: Current Caffeine Type: Soda, Tea Cigarette Use Packs/Day: 0.5 pack per day Current Tobacco Usage: Current Recreational Drug Use: Denies Smoking Status: Smokes daily Tobacco Type: Cigarettes Physical Examination TEMP BP Pulse RR MAP O2 Sat 36.8 158/81 98 20 106.67 Blood Pressure Location: Right arm Weight Height BMI BSA 177 cm General: The patient is a well-developed, well-nourished female in no apparent distress. Alert and oriented times 3. Neck: Supple, full range of motion. HEENT: Within normal limits. Skin: Dry and intact. Lungs: Clear. Heart: Regular in rate and rhythm. Abdomen: Positive bowel sounds, soft. Extremities: No clubbing, cyanosis or edema. Neurologic: Strength intact in the lower extremities bilaterally. Sensation is intact for upper and lower extremities. Impression 1. Lumbar Spondylosis. (721.3) 2. Post lumbar laminectomy syndrome 3. Chronic low back pain 4. Depression Plan 1. Increase Celexa to 40 mg daily as an antidepressant, which may give her some degree of pain relief as well. 2. We will start the patient on Duragesic patch at low dosage. Monitor for sedation, constipation and nausea. Medication changes this visit: New Celexa 40 mg oral tablet, 40 mg, daily, Quantity: 30, Refills: 2 Duragesic-12 transdermal film, extended release, 1 Patch, Q72H, Quantity: 5, Refills: 0, Comment: 2 week trial script, next appt 02/22/14 in [place] Percocet 10/325 oral tablet, 1 Tab, PRN, Q4H, Quantity: 48, Refills: 0, Comment : May fill 02/15/14 to 02/22/14 appt in [place] Stopped Celexa 20 mg oral tablet, 20 mg, daily, Quantity: 30, Refills: 0, Comment: next script increase to 40mg daily Percocet /, 1 Tab, Q4H, Refills: 0 We will see the patient back in the near future and continue percocet for breakthrough pain. All questions have been answered otherwise. TR: JULIUS FÉLIX#: [id number] [Electronically Signed on 02.11.2014 12:58 PM] Chris Randle MD </br> 02/07/2014 [Electronically Signed on 02.11.2014 12:58 PM] Chris Randle MD [facility] Ambulatory Depart Summary Ambulatory Depart Summary [facility] [address] [place] [address] [address] [place] [address] PERSON INFORMATION Name PAM NUÑEZ Age 33 Years 1980 12:00 AM Sex Female Language Tamazight PCP Chris Randle MD Marital Status Time Zone N [id number] Visit Id Visit Reason bilat L4-5, L5-S1 Facet Injections Specialty Enc Type [facility] Med Service OUTPT-Outpatient/Hospital Referred by [facility] Clinic Discharge Process Discharge Tracking Id Checkout Checkin Acuity Dispo Type Arrival 12/22/2013 3:15 PM Reg Status LOS Address: [address] [place] [address] PHYS DOC NOTES PROVIDER INFORMATION VITALS INFORMATION Height: 5ft 9.7in Weight: Temp: 98.6 F Heart Rate: 74 Respiratory: 16 O2 Sat: BP: 184/104 LOCATION INFORMATION Arrival Nurse Unit Room Bed ORDERS INFORMATION Start Time Order Type Status Stop Time Provider 12/22/2013 2:55 PM DX Fluoro 1 Hour or Less [address] Radiology Canceled 12/22/2013 4 :02 PM Chris Randle MD 12/22/2013 3:59 PM Referral - Request Patient Care -Request Ordered 12/22/2013 3: 59 PM Chris Randle MD 12/22/2013 3:38 PM Paravertebral Facet Lumbar/Sacral Careset -[facility] Clinic Careset Completed 12/22/2013 3:39 PM Chris Randle MD 12/22/2013 3:38 PM Single Level Facet Joint Injection, Lumbar/Sacral Bilateral Including Fluoro-[facility] Patient Care -Clinic Completed 12/22/2013 4:01 PM Chris Randle MD 12/22/2013 3:38 PM Second Level Facet Joint Inj, Lumbar Bilat Incl Fluoro -[facility] Patient Care -Clinic Completed 12/22/2013 4:01 PM Chris Randle MD 12/22/2013 3:38 PM Depo-Medrol 80mg -[facility] Clinic Charge Completed 12/22/2013 4: 01 PM Chris Randle MD 12/22/2013 3:38 PM Lidocaine 1% 20ml -[facility] Clinic Charge Completed 12/22/2013 4: 01 PM Chris Randle MD 12/22/2013 3:38 PM Marcaine 0.5% 10ml -[facility] Clinic Charge Completed 12/22/2013 4: 01 PM Chris Randle MD MEDICAL INFORMATION Allergy Info: NKA HOME MEDICATIONS Celexa 20 mg oral tablet 20 mg, Oral, Daily, next script increase to 40mg daily, Routed to: [facility] 203 Percocet 10/325 1 Tab, Oral, Every 4 hours, 1 to 2 tabs as needed Topamax 100 mg oral tablet 100 mg, Oral, At bedtime trazodone 50 mg oral tablet 50 mg, Oral, At bedtime, as needed DISCHARGE INFORMATION Discharge Disposition: Discharge Location: PATIENT EDUCATION INFORMATION Instructions: Follow up: With: Address: When: Chris Randle [address] [place] [address] [facility] () 02/07/2014 10:30:00 Comments: FOLLOW UP With: Address: When: Dina Nj [address] [address] [address] [place] [phone] [facility] (1) 02/07/2014 12:45:00 Comments: REHAB CONSULT With: Address: When: SANCHO ONEAL 02/07/2014 11:15:00 Comments: [facility] DIAGNOSIS 12/22/2013 [facility] Amb Nurs Intake Event Amb Nurs Intake Event 2013 [facility] Office/Clinic Notes Office/Clinic Notes [facility] [address] [address] [address] [place] [phone] PATIENT: PAM NUÑEZ MR #: [id number] : 1980 DATE SEEN: 12/22/2013 Chief Complaint Patient here for procedure due to low back pain. Rates pain 6/10 constant grabbing and stabbing. 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 History of Present Illness This is a 33-year-old obese female complaining of low back pain chronically. VAS (verbal analog score) is a 6/10. She is on percocet 10 mg every 4 hours as needed, as well as trazodone and Topamax. They do provide her with some degree of analgesia and improved functioning with activities of daily living. She has previously been on Cymbalta without any positive analgesic effects. She has also tried various muscle relaxers, according to patient report, but they ended up being too sedating and she does not really want to try them again. She has had previous bilateral lumbar facet joint injections at L4-L5 and L5-S1 under fluoroscopic guidance. She tells me they did not help her at all with her pain complaints and, as a matter of fact, they actually worsened her pain for a few days immediately after procedure. She denies any fever, chills, nausea, vomiting , diarrhea, new onset bowel or bladder dysfunction, weakness or numbness of the upper or lower extremities that is new. Pain Assessment Cognitive Status: Independent, decisions consistent/reasonable Intensity: 6 Location: Lower back Acceptable Intensity: 0 Scale Type: Santana-Peralta Faces Pain Scale Time Pattern: Constant Quality: Grabbing, Stabbing Aggravating Factors: Lying down, Movement, Sitting, Standing Alleviating Factors: Medications, Rest Interventions: Medications, Rest Pain Effects on Appetite: Mild Pain Effects on Concentration: Mild Pain Effects on Daily Life: Moderate Pain Effects on Emotions: Moderate Pain Effects on Relationships: None Pain Effects on Sleep: Moderate Pain Effects on Work/School: Mild Pain Best: 3 Pain Worst: 10 Allergies NKA Current Medications Percocet 10/325 (acetaminophen-oxycodone), 1 Tab, Every 4 hours Topamax 100 mg oral tablet (topiramate), 100 mg, At bedtime trazodone 50 mg oral tablet (trazodone), 50 mg, At bedtime Social History Alcohol Use: Denies Cigarette Use Packs/Day: 0.5 pack per day Current Tobacco Usage: Current Recreational Drug Use: Denies Smoking Status: Smokes daily Tobacco Type: Cigarettes Physical Examination TEMP BP Pulse RR MAP O2 Sat 37.0 184/104 74 16 130.67 Blood Pressure Location: Right arm Weight Height BMI BSA 177 cm General: The patient is a well-developed, well-nourished, obese female in no apparent distress. Alert and oriented times 3. She is intermittently tearful and upset throughout the exam and interview. Neck: Supple, full range of motion. HEENT: Within normal limits. Skin: Dry and intact. Lungs: Clear. Heart: Regular in rate and rhythm. Abdomen: Positive bowel sounds, soft. Extremities: No clubbing, cyanosis or edema. Neurologic: Strength intact in the upper and lower extremities bilaterally. Sensation is intact for upper and lower extremities. Impression 1. Lumbar Spondylosis. (721.3) 2. LBP (Low Back Pain) (724.2) 3. Muscle Pain, Fibromyalgia or Myofascial (729.1) 4. Post lumbar laminectomy syndrome Plan 1. I think it would be reasonable to refer the patient to Sancho, our application packaging specialist for consideration of a home exercise program. I would caution her to avoid extension exercises. She does not have health insurance which covers physical therapy, per se. 2. In the meantime, we will start her on Celexa as an antidepressant and gradually escalate as indicated. 3. I will hold off on further lumbar facet injections secondary to ineffectiveness. 4. I will refer the patient to Dr. Dina Nj for possible ultrasound guided trigger point injections. I do not believe these have been done yet. Medication changes this visit: New Celexa 20 mg oral tablet, 20 mg, daily, Quantity: 30, Refills: 0, Comment: next script increase to 40mg daily Orders this visit: Second Level Facet Joint Inj, Lumbar Bilat Incl Fluoro -CFPM Single Level Facet Joint Injection, Lumbar/Sacral Bilateral Including Fluoro- CFPM Referral - Request methylprednisolone, 80 mg, X 1 DOSE We will see the patient back in a few months and assess her progress at that time. All questions have been answered. TR: JULIUS FÉLIX#: [id number] [Electronically Signed on 12.29.2013 01:15 PM] Chris Randle MD </br> 12/22/2013 [Electronically Signed on 12.29.2013 01:15 PM] Chris Randle MD [facility] Procedure Reports Procedure Reports [facility] [address] [place] [phone] PATIENT: PAM NUÑEZ MR #: [id number] : 1980 DATE SEEN: 11/29/2013 PROCEDURE: Bilateral facet joint injections at L4-L5 and L5-S1 under direct fluoroscopic guidance. PREPROCEDURE DIAGNOSIS: Lumbar spondylosis. POSTPROCEDURE DIAGNOSIS: Lumbar spondylosis. ESTIMATED BLOOD LOSS: None. COMPLICATIONS: None. DESCRIPTION OF PROCEDURE: A bilateral facet joint injection was done today in the usual manner under fluoroscopy. After informed consent was obtained and risks/benefits were explained (bleeding , infection, headache and possible nerve damage including paralysis), the patient was taken to the procedure room and placed in the prone position. The skin was then prepped and draped in the usual sterile fashion. Following this, the skin was localized with 1% Xylocaine at the bilateral L4-L5 interspace. Then, a #22 gauge 5-inch spinal needle was inserted into the bilateral facet joints, using direct fluoroscopic guidance. Then, 1 mL of 0.50% Marcaine preservative free, remaining vial wasted, and 8 mg of Depo-Medrol were injected without difficulties. The exact same procedure was performed along the bilateral L5-S1 facet joints. The needle(s) removed intact. The patient was monitored and discharged in stable condition. An epidural tray was used for this procedure. This is the first injection in the series. TR: [id number] FÉLIX#: [id number] [Electronically Signed on 12.02.2013 02:28 PM] Chris Randle MD </br> 11/29/2013 [Electronically Signed on 12.02.2013 02:28 PM] Chris Randle MD [facility] Ambulatory Depart Summary Ambulatory Depart Summary [facility] [address] [place] [phone] PERSON INFORMATION Name PAM NUÑEZ Age 32 Years 1980 12:00 AM Sex Female Language Tamazight PCP Chris Randle MD Marital Status Time Zone Visit Id Visit Reason FACET INJECT, CHILI PT, 3 PM APPT PER , ,TS Specialty Enc Type [facility] Med Service OUTPT-Outpatient/Hospital Referred by [facility] Clinic Discharge Process Discharge Tracking Id Checkout Checkin Acuity Dispo Type Arrival 11/29/2013 3:07 PM Reg Status LOS Address: [address] [place] [id number] [facility] DOC NOTES PROVIDER INFORMATION VITALS INFORMATION Height: 5ft 9.7in Weight: Temp: 98.1 F Heart Rate: 84 Respiratory: 16 O2 Sat: BP: 177/88 LOCATION INFORMATION Arrival Nurse Unit Room Bed ORDERS INFORMATION Start Time Order Type Status Stop Time Provider 11/29/2013 3:29 PM DX Fluoro 1 Hour or Less PM Radiology Ordered 11/29/2013 3:29 PM Chris Randle MD 11/29/2013 3:29 PM DX Fluoro 1 Hour or Less [id number] Radiology Canceled 11/29/2013 4 :04 PM Chris Randle MD 11/29/2013 3:57 PM Paravertebral Facet Lumbar/Sacral Careset -CFPM Clinic Careset Completed 11/29/2013 3:58 PM Chris Randle MD 11/29/2013 3:58 PM Single Level Facet Joint Injection, Lumbar/Sacral Bilateral Including Fluoro-CFPM Patient Care -Clinic Completed 11/29/2013 3:58 PM Chris Randle MD 11/29/2013 3:58 PM Second Level Facet Joint Inj, Lumbar Bilat Incl Fluoro -CFPM Patient Care -Clinic Completed 11/29/2013 3:58 PM Chris Randle MD 11/29/2013 3:58 PM Depo-Medrol 80mg -CFPM Clinic Charge Completed 11/29/2013 3: 58 PM Chris Randle MD 11/29/2013 3:58 PM Lidocaine 1% 20ml -CFPM Clinic Charge Completed 11/29/2013 3: 58 PM Chris Randle MD 11/29/2013 3:58 PM Marcaine 0.5% 10ml -CFPM Clinic Charge Completed 11/29/2013 3: 58 PM Chris Randle MD MEDICAL INFORMATION Allergy Info: NKA HOME MEDICATIONS Percocet 10/325 1 Tab, Oral, Every 4 hours, 1 to 2 tabs as needed Topamax 100 mg oral tablet 100 mg, Oral, At bedtime trazodone 50 mg oral tablet 50 mg, Oral, At bedtime, as needed DISCHARGE INFORMATION Discharge Disposition: Discharge Location: PATIENT EDUCATION INFORMATION Instructions: Follow up: With: Address: When: Chris Randle [address] [id number] Business (1) 12/20/2013 13:55:00 Comments: DIAGNOSIS LBP (Low Back Pain) 11/29/2013 [facility] Amb Nurs Intake w Hx Event Amb Nurs Intake w Hx Event 11/29/2013 [facility] Level of Functioning Grid-Clinic Level of Functioning Grid-Clinic 11/29/2013 [facility] Office/Clinic Notes Office/Clinic Notes [facility] [address] [place] [phone] PATIENT: PAM NUÑEZ MR #: [id number] : 1980 DATE SEEN: 11/29/2013 Chief Complaint Patient here for procedure due to low back pain. Rates pain 4/10 dull. 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 History of Present Illness This is a 32-year-old obese female complaining of low back pain. Verbal analog score is 4/10. She is on percocet 10 mg every 4 hours as needed, Topamax and Trazodone. She denies any side effects to her pain medication regimen, it provides her with improved analgesia and improved functioning with ADLs ( activities of daily living). Pain Assessment Cognitive Status: Independent, decisions consistent/reasonable Intensity: 4 Location: Lower back Acceptable Intensity: 0 Scale Type: Santana-Peralta Faces Pain Scale Time Pattern: Constant Quality: Dull Radiating: None Associated Symptoms: Unable to participate in physical activity Aggravating Factors: Movement Alleviating Factors: Medications, Rest Interventions: Medications, Rest Pain Effects on Appetite: Mild Pain Effects on Concentration: None Pain Effects on Daily Life: Moderate Pain Effects on Emotions: Mild Pain Effects on Relationships: None Pain Effects on Sleep: Moderate Pain Effects on Work/School: Mild Pain Best: 3 Pain Worst: 10 Allergies NKA Current Medications Percocet 10/325 (acetaminophen-oxycodone), 1 Tab, Every 4 hours Topamax 100 mg oral tablet (topiramate), 100 mg, At bedtime trazodone 50 mg oral tablet (trazodone), 50 mg, At bedtime Social History Alcohol Use: Denies Cigarette Use Packs/Day: 0.5 pack per day Current Tobacco Usage: Current Education: High school Recreational Drug Use: Denies Smoking Status: Smokes daily Tobacco Type: Cigarettes Physical Examination TEMP BP Pulse RR MAP O2 Sat 36.7 177/88 84 16 117.67 Blood Pressure Location: Left arm Vital Signs Monitoring: Weight Height BMI BSA 177 cm General: The patient is a well-developed, well-nourished obese female in no apparent distress. Alert and oriented times 3. Neurologic: Strength intact in the lower extremities bilaterally. Musculoskeletal: She has positive lumbar facet loading. Impression 1. Lumbar Spondylosis. (721.3) 2. Chronic low back pain 3. Post lumbar laminectomy syndrome Plan Orders this visit: Second Level Facet Joint Inj, Lumbar Bilat Incl Fluoro -CFPM Single Level Facet Joint Injection, Lumbar/Sacral Bilateral Including Fluoro- CFPM methylprednisolone, 80 mg, X 1 DOSE DX Fluoro 1 Hour or Less PM Future Orders: DX Fluoro 1 Hour or Less [id number] - 12/22/13 14:55 DX Fluoro 1 Hour or Less [id number] - 01/10/14 14:50 1. At this time, we will proceed with bilateral lumbar facet joint injections under fluoroscopic guidance. I have gone over risks and benefits. The patient would like to go ahead with it. No guarantees were given. We will do the first set today, see the patient back in the a few weeks and assess the patient' s progress at that time. TR: [id number] FÉLIX#: [id number] [Electronically Signed on 12.02.2013 02:26 PM] Chris Randle MD </br> 11/29/2013 [Electronically Signed on 12.02.2013 02:26 PM] Chris Randle MD [facility] Office/Clinic Notes Office/[place] [address] RE: PAM NUÑEZ MR #: [id number] : 1980 DATE SEEN: 11/23/2013 This is a 32-year-old female with a chief complaining of lumbar back pain going to the hips and down the legs intermittently to the knees. Verbal analog score is a 9/10. She is on Percocet 10 mg 6 a day p.r.n., trazodone and Topamax. She denies any side effects to pain medication regimen and does provide her with improved analgesia and improved functioning with ADLs. The patient has had a recent MRI of the lumbar spine dated 10/27/2013 showing central bulging disk at L3-L4. There is degenerative disk disease at L5-S1 with narrowing of the disk space and spondylosis at L5-S1. There is scar formation at L5-S1 with contrast medium gadolinium. No evidence of residual herniated lumbar disks noted. I have gone over these findings with the patient. OBJECTIVE: Well-developed, well-nourished female in mild distress secondary to pain, obese. She has 5/5 strength lower extremities bilaterally. She has tenderness to palpation of left sacroiliac joint. She has positive lumbar facet loading. There are multiple trigger points along the quadratus lumborum, PSIS, lumbar paraspinous musculature. ASSESSMENT: 1. Lumbar spondylosis. 2. Myofascitis. 3. Sacroiliitis. 4. Post-lumbar laminectomy syndrome. 5. History of myocardial infarction in 2010. 6. Obesity. 7. Hypertension. PLAN: 1. We will need to set the patient up for lumbar facet joint injections at L4- L5 and L5-S1 bilaterally at [facility] after 3 p.m. I have gone over risks, benefits. She would like to go ahead with it. No guarantees were given. 2. We will plan on seeing the patient back in the near future and initiate our treatment plan as above. All questions have been answered. Dictated By: CHRIS RANDLE MD DICTATED BY: Chris Randle. cc: [facility] - Dr Randle TR: [id number] DR: 11/23/2013 16:47 DE: 11/24/2013 03:28 JOB#: [id number] [Electronically Signed on 11.24.2013 05:04 PM] Chris Randle MD </br> 11/23/2013 [Electronically Signed on 11.24.2013 05:04 PM] Chris Randle MD [facility] Care Office/Clinic Notes Office/[place] [address] RE: PAM NUÑEZ MR #: [id number] : 1980 DATE SEEN: 09/14/2013 This is a 32-year-old obese female complaining of left-sided back pain with radiation to the left lower extremity down to the foot. She notes numbness and tingling with it. Verbal analog score is a 4/10. She describes the pain as a sharp, shooting, prickling sensation. It is made worse with physical activity and movement. It is made somewhat better with rest and pain medication to some extent. She is on Percocet 10 mg 6 a day p.r.n., Topamax and trazodone. These do provide her with improved analgesia and improved function with ADLs. She has recently seen Dr. Garza who has performed a left shoulder steroid injection and she is much better symptomatically after this injection. ALLERGIES: NO KNOWN DRUG ALLERGIES. SOCIAL HISTORY: The patient smokes less than half pack of cigarettes a day. She denies alcohol use. REVIEW OF SYSTEMS: Neuro, respiratory, cardiac, GI, psych negative. PHYSICAL EXAMINATION: Well-developed, well-nourished female, obese, in no apparent distress. She has 5/5 strength in lower extremities bilaterally. Sensation diminished in the left lower extremity in a nondermatomal distribution. There is tenderness to palpation of left sacroiliac joint. There are multiple trigger points along the quadratus lumborum PSIS lumbar paraspinous musculature. ASSESSMENT: 1. Post-lumbar laminectomy syndrome. 2. Sacroiliitis. 3. Left shoulder pain, resolved. 4. Myofascitis. 5. L5-S1 degenerative disk disease. 6. History of myocardial infarction in 2010. 7. Obesity. 8. Hypertension. PLAN: 1. I think it would be reasonable to check an MRI of lumbar spine with contrast looking at intraspinal pathology contributing to her symptoms. We will give her Valium for pre-sedation. 2. Depending on results of MRI study, consideration should be given to lumbar epidural steroid injection versus transforaminal epidural steroid injection. 3. In the meantime, we will continue her usual pain medication regimen otherwise. Dictated By: CHRIS RANDLE MD DICTATED BY: Chris Randle. cc: [facility] - Dr Randle TR: [id number] DR: 09/14/2013 17:17:00 DE: 09/15/2013 11:56:00 JOB#: [id number] [Electronically Signed on 09.16.2013 02:45 PM] Chris Randle MD </br> 09/14/2013 [Electronically Signed on 09.16.2013 02:45 PM] Chris Randle MD [facility] Care Office/Clinic Notes Office/Clinic Notes [address] [address] Tele RE: PAM NUÑEZ MR #: [id number] : 1980 DATE SEEN: 07/20/2013 This is a 32-year-old obese female with chief complaint of low back pain and increased left shoulder pain. She notes bilateral hip pain, which radiates down to her legs. Verbal analog score is 7/10 today. She does note occasional numbness and tingling to the left upper extremity. She describes the pain as a sharp, knife-like twisting sensation. It is made better with heat, rest, and pain medications. It is made worse with physical activity and weather changes. The patient is on Lortab 10 mg up to 5 a day p.r.n. She states it is like taking "Skittles." She is on Trazodone at night, which does help with sleep. She also uses Topamax 100 mg at bedtime. She has been taking naproxen, ibuprofen, and Mobic. None of the above helped with her arthralgic pain complaints. ALLERGIES: NO KNOWN DRUG ALLERGIES. SOCIAL HISTORY: She smokes a quarter pack of cigarettes a day. She denies alcohol abuse. PHYSICAL EXAMINATION: Well-developed, well-nourished, obese female in mild distress secondary to pain. She is alert and oriented x3. Strength intact to the lower extremities bilaterally. There is tenderness to palpation of left sacroiliac joint. There are multiple trigger points along the quadratus lumborum, PSIS, and lumbar paraspinous musculature. ASSESSMENT: 1. Post-lumbar laminectomy syndrome. 2. Myofascitis. 3. Sacroiliitis. 4. Left shoulder pain. 5. L5-S1 degenerative disk disease. 6. History of myocardial infarction, 05/2011. 7. Obesity. 8. Hypertension. PLAN: 1. I will refer the patient to Dr. Garza for further workup and care of left shoulder pain. 2. We will discontinue Lortab and put the patient on Percocet 10 mg 6 a day p.r.n. for pain control. Monitor for sedation, constipation, and nausea. 3. I believe the patient most likely has tendinitis or bursitis of her left shoulder possibly; however, I will leave further care and workup to Dr. Garza's capable hands. I will see the patient back in the near future and assess her progress at that time. Dictated By: CHRIS RANDLE MD DICTATED BY: Chris Randle. cc: TR: [id number] DR: 07/20/2013 16:44:00 DE: 07/21/2013 16:40:00 JOB#: [id number] [Electronically Signed on 07.23.2013 01:53 PM] Chris Randle MD </br> 07/20/2013 [Electronically Signed on 07.23.2013 01:53 PM] Chris Randle MD [facility] Care Office/Clinic Notes Office/Clinic Notes [address] [address] TITLE OF REPORT: FOLLOWUP NOTE DATE: 04/27/2013 HISTORY OF PRESENT ILLNESS: This is a 32-year-old obese female complaining of back and left lower extremity pain. Verbal analog score (VAS) is 6 out of 10. She has noticed increase in lower extremity edema, right greater than left. She tells me that she has had this since her first back surgery intermittently, but apparently more recently it is getting worse. She is on Vicodin 10 mg as needed (PRN) as well as Trazodone 50 mg on an as needed (PRN) basis. She rarely takes the Trazodone. She has tried Mobic previously, but it caused gastrointestinal (GI) distress and has been discontinued. She denies any fever , chills, nausea, vomiting or diarrhea, new onset bowel or bladder dysfunction, weakness or numbness of the lower extremities that is new. She denies any chest pain, shortness of breath, abdominal pain. REVIEW OF SYSTEMS: Neurologic: Negative. Respiratory: Negative. Cardiovascular: Negative. Endocrine: Negative. Gastrointestinal: Negative. Mental status/psych: Negative. Integumentary: Negative. Eyes: Negative. ENT: Negative. Constitutional: Negative. : Negative. PHYSICAL EXAMINATION: The patient is well-developed, well-nourished and in no apparent distress. Alert and oriented x3. Strength is intact for the upper and lower extremities bilaterally. The patient does have +2 to +3 pitting edema more so on the left lower extremity than the right. She has multiple trigger points to the quadratus lumborum, posterior sacroiliac spine (PSIS) and lumbar paraspinous musculature. There is tenderness to palpation of the left sacroiliac joint. ASSESSMENT: 1. Post lumbar laminectomy syndrome. 2. Myofascitis. 3. Sacroiliitis. 4. L5-S1 degenerative disc disease. 5. History of myocardial infarction ([place]) May 2011. 6. Obesity. 7. Hypertension. 8. Bilateral lower extremity pain. PLAN: 1. I will put the patient on Topamax as an adjunctive pain medication. 2. Continue Vicodin as a chronic opioid medication. 3. I would recommend returning to her primary care provider for further workup of lower extremity swelling. 4. I will see her back in three months and assess her progress at that time. DICTATED BY: Chris Randle cc: Carrillo Shi MD [facility] - Dr Randle TR: [email or web address] DR: DE: JOB#: [id number] [Electronically Signed on 04.28.2013 05:56 PM] Chris Randle MD </br> 04/27/2013 [Electronically Signed on 04.28.2013 05:56 PM] Chris Randle MD [facility] Office/Clinic Notes Office/Clinic Notes [address] [address] TITLE OF REPORT: FOLLOWUP NOTE DATE: 01/12/2013 HISTORY OF PRESENT ILLNESS: This is a 32-year-old obese female complaining of right-sided low back pain. Verbal analog score is 7/10. She describes the pain as a sharp, grabbing, burning sensation. It is made better with heat, rest and pain medication to some extent. It is made worse with physical activity and weather changes. She is mainly on Mobic 15 mg daily and Lortab 10 mg up to five a day p.r.n. Her last dose of Lortab was today. She hardly ever takes trazodone at night, it makes her too sleepy during the day. She stopped taking baclofen because it makes her too sleepy as well. She does not want anything to replace it presently. ALLERGIES: NO KNOWN DRUG ALLERGIES. PAST SOCIAL HISTORY: She smokes about a quarter pack of cigarettes a day. She is starting to cut down on smoking. She denies heavy drug abuse or alcohol abuse. REVIEW OF SYSTEMS: Neurologic: As above. Respiratory: Negative. Cardiovascular: Negative. Gastrointestinal: Negative. Mental status/psych: Negative. PHYSICAL EXAMINATION: A well-developed, well-nourished, obese female, in mild distress secondary to pain. She is alert and oriented times 3. Strength is intact in the upper and lower extremities bilaterally. She has tenderness to palpation of the left sacroiliac joint. There are multiple trigger points along the quadratus lumborum, posterior superior iliac spine (PSIS) and lumbar paraspinous musculature. ASSESSMENT: 1. Sacroiliitis. 2. Myofascitis. 3. Postlumbar laminectomy syndrome. 4. L5-S1 degenerative disk disease. 5. History of myocardial infarction May 2011. 6. Obesity. 7. Hypertension. PLAN: 1. We will discontinue baclofen secondary to sedation. 2. We will check a drug screen. 3. Given the fact that the patient is extremely claustrophobic regarding obtaining an MRI of the lumbar spine and will need conscious intravenous sedation, I think it would at least be reasonable to obtain instead a CT scan of the lumbar spine with contrast since she has had previous lumbar surgery. I would like to know if there is anything else that can be done to help with her chronic back pain complaints. 4. In the meantime we will continue the usual pain medication regimen. We will see her back after the aforementioned studies and further formulate a treatment plan. DICTATED BY: Chris Randle cc: [facility] - Dr Randle TR: ana maria DR: DE: JOB#: [id number] [Electronically Signed on 01.13.2013 04:42 PM] Chris Randle MD </br> 01/12/2013 [Electronically Signed on 01.13.2013 04:42 PM] Chris Randle MD [facility] Office/Clinic Notes Office/Clinic Notes [address] [address] TITLE OF REPORT: FOLLOWUP NOTE DATE: 08/11/2012 HISTORY OF PRESENT ILLNESS: This is a 31-year-old female chief complaining of increased back pain, mostly on the right side. She describes the pain as a dull pressure-like feeling. It is made worse with cold and physical activity and movement. It is made better with heat, rest and pain medication. She is on chronic doses of Robaxin which makes her too sleepy. She is on Lortab 10 mg every 4 hours p.r.n. (last does 08/11/2012 in the a.m.). She is also on Trazodone and Mobic. ALLERGIES: NO KNOWN DRUG ALLERGIES. PAST SOCIAL HISTORY: She smokes a half pack of cigarettes a day. Denies alcohol use. REVIEW OF SYSTEMS: Neurologic: As above. Respiratory: Negative. Cardiovascular: Negative. Gastrointestinal: Negative. Mental status/psych: Negative. PHYSICAL EXAMINATION: A well-developed, well-nourished obese female, in mild distress secondary to pain. She is alert and oriented times 3. Strength is intact in the upper and lower extremities bilaterally, with Turners palpation in the left sacroiliac joint. She has multiple trigger points along the left quadratus lumborum, posterior superior iliac spine (PSIS) and left lumbar paraspinous musculature. ASSESSMENT: Left sacroiliitis.Myofascitis.Post lumbar laminectomy syndrome.L5- S1 degenerative disk disease.History of myocardial infarction May 2011.Obesity.Hypertension PLAN:I will discontinue Robaxin and put the patient on baclofen as an antispasmodic. We will write for Cymbalta for diagnosis of chronic musculoskeletal pain.I have asked her to try theraccine which she can obtain online from multiple online vendors which may give her some relief of myofascial pain complaints. This is used as a myofascial release tool.She is still unable to obtain her MRI study. Apparently given the type of insurance she has, this could only be accomplished in [place], [place] at the [facility] as I understand. In addition, her to have conscious intravenous sedation along with the MRI study in [place] it has to be ordered by a physician on staff there. I have expressed the fact to Pam that I will not increase her medications at all until we until we obtain a new MRI study. She understands this. We will see the patient back in the near future and assess her progress and assess her progress. DICTATED BY: Chris Randle cc:Carrillo Shi MD [facility] - Dr Randle TR: ana maria DR: DE: JOB#: [id number] [Electronically Signed on 08.12.2012 03:24 PM] Chris Randle MD </br> 08/11/2012 [Electronically Signed on 08.12.2012 03:24 PM] Chris Randle MD [facility] Office/Clinic Notes Office/Clinic Notes [address] [address] TITLE OF REPORT: FOLLOWUP NOTE DATE: 03/03/2012 HISTORY OF PRESENT ILLNESS: This is a 31-year-old obese female complaining of left-sided low back and hip pain. Verbal analog score is an 8 out of 10. She describes the pain as a stabbing sensation that is made worse with physical activity and movement. It is made better with pain medication and rest. The patient is on Vicodin 10 mg five a day as needed, Mobic 7.5 mg a day, Trazodone 50-500 mg, one to two at bedtime and Robaxin 750 mg three times a day as needed. She states she is sleeping better on her pain medication regimen, but she does note some occasional daytime drowsiness. She has not been able to get an MRI study because of previous insurance noncoverage. However, she is now on Medicaid and she will be able to have an MRI study done. ALLERGIES: NO KNOWN DRUG ALLERGIES. PAST SOCIAL HISTORY: The patient smokes a half pack cigarettes a day. She denies alcohol use. REVIEW OF SYSTEMS: Neurologic: Negative. Respiratory: Negative. Cardiovascular: Negative. Endocrine: Negative. Gastrointestinal: Negative. Mental status/psych: Negative. Integumentary: Negative. Eyes: Negative. ENT: Negative. Constitutional: Negative. : Negative. PHYSICAL EXAMINATION: The patient is a well-developed, well-nourished obese female in mild distress secondary to pain. She is alert and oriented times 3. Strength is intact for the lower extremities bilaterally. She has tenderness to palpation of the left sacroiliac joint. There are multiple trigger points on the left quadratus lumborum, PSIS (posterior superior iliac spine) and left lumbar paraspinous musculature. ASSESSMENT: Left sacroiliitis. Post lumbar laminectomy syndrome. L5-S1 degenerative disk disease. Previous myocardial infarction ([place]) 05/19/2011. Obesity. Hypertension. PLAN: At this time, will continue the usual pain medication regimen as prescribed other than increase Mobic to 15 mg a day as an inflammatory agent. Will check an x-ray of the lumbar spine and if positive will get an MRI of the lumbar spine with contrast with monitored anesthesia care at [facility] since she is in rather severe pain at times and will not be able to stay still long enough in a supine position in order to obtain appropriate images for MRI study with contrast,. We will see the patient back after MRI study and further formulate a treatment plan. DICTATED BY: Chris Randle cc:Carrillo Shi MD [facility] - Dr Randle TR: shahida DR: DE: JOB#: [id number] [Electronically Signed on 03.06.2012 07:24 AM] Chris Randle MD </br> 03/03/2012 [Electronically Signed on 03.06.2012 07:24 AM] Chris Randle MD [facility] Care Office/Clinic Notes Office/Clinic Notes [address] [address] TITLE OF REPORT: FOLLOWUP NOTE DATE: 12/31/2011 HISTORY OF PRESENT ILLNESS: This is a 31-year-old, morbidly-obese female complaining of low back and left hip pain chronically. Verbal analogue score is a 6/10. She describes the pain as a stabbing, throbbing sensation. It is made worse with physical activity and movement. It is made better with pain medication and rest. She is on Vicodin 10 mg five a day PRN. She had tried Robaxin since last visit, but it made her too sleepy and that has been discontinued. She also uses trazodone at night, which does help her sleep better at night. The patient has had a previous MRI of the lumbar spine performed in May which shows some degenerative disc disease, but no nerve root impingement. This was done without contrast. Previous urine drug screen was performed 11/05/2011 which was appropriate for what she was taking at the time. ALLERGIES: NO KNOWN DRUG ALLERGIES. PAST SOCIAL HISTORY: She smokes about 1 pack of cigarettes a day; denies alcohol or IV drug abuse. PHYSICAL EXAMINATION: The patient is a well-developed, well-nourished, obese female in no apparent distress. She is alert and oriented x3. She has 5/5 strength for the lower extremities bilaterally. Positive tenderness to palpation of the left sacroiliac joint. Multiple trigger points along the left quadratus lumborum, PSIS, and left lumbar paraspinous musculature. ASSESSMENTS: Left sacroiliitis.Postlumbar laminectomy syndrome.L5-S1 degenerative disc disease.Previous myocardial infarction, 05/19/2011.Morbid obesity.Hypertension. PLAN: At this time, will continue her usual pain medication regimen, other than discontinuation of Robaxin secondary to side effects.Will check an MRI of the lumbar spine with contrast in [place] under monitored anesthesia care, given the fact that she is in quite a bit of pain and will not be able to keep still long enough to obtain contrast images for MRI study necessary to get an adequate scan.Will discontinue naproxen, and try her on Mobic as an antiinflammatory agent.Will see the patient back after MRI study and further formulate a treatment plan. She may be a reasonable candidate for sacroiliac joint injection versus epidural injection in the future. DICTATED BY: Chris Randle cc:Rufino Becker MD (Alex) [facility] - Dr Randle TR: lon DR: DE: JOB#: [id number] [Electronically Signed on 01.01.2012 06:16 pm] Chris Randle MD </br> 12/31/2011 [Electronically Signed on 01.01.2012 06:16 pm] Chris Randle MD [facility] Office/Clinic Notes Office/Clinic Notes [address] [address] TITLE OF REPORT: NEW PATIENT CONSULTATION NOTE DATE: 11/05/2011. HISTORY OF PRESENT ILLNESS: The patient is a pleasant 30-year-old morbidly obese female complaining of left-sided low back pain radiating into her left hip and thigh. She does notice numbness and tingling in the left lower extremity after walking long distances. Verbal analog score is 7 out of 10. The worst the pain gets is 10 out of 10. The best the pain gets is 5 out of 10. She describes the pain as a sharp, burning sensation which throbs and shoots down to her hip. She states this pain began around January 2011 after her last back surgery, When I went back to work as a [employer]. She has had two previous back surgeries, one in November 2005 and one in December 2010. Nothing takes the pain away. While any movement from side to side, standing for long periods of time, twisting, walking, sneezing, and coughing exacerbates her pain. She has associated sleeplessness and irritability accompanying the pain. She denies chiropractic manipulation (she is scared to), or the use of physical therapy for her pain complaints. She denies bowel or bladder dysfunction. She has tried Flexeril, but it made her too sleepy and has been discontinued. She is on Vicodin 10 mg up to four to six per day, which still give her constipation, but this is controlled with psex-rdw-ajeqyig laxatives and stool softeners. It does provide her with improved analgesia and improved functioning with ADLs. She has seen a neurosurgeon, Dr. Pace, at the [facility] at [facility] in [place], [place] on June 14, 2011 and was told that no further surgical intervention is to be done. She was told to look into Bariatric surgery and does not wish to undergo that type of surgical intervention. ALLERGIES: NO KNOWN DRUG ALLERGIES. SOCIAL HISTORY: The patient is and lives with a family member. She smokes about a pack of cigarettes per day. She denies alcohol use. She denies IV drug abuse. She had worked at [employer] as a [employer], but has been off of work for a few weeks now because of her pain complaints. She has a high school level of education. PAST MEDICAL HISTORY: Chronic back pain with history of previous back surgeries from disc herniations, etc.History of hypertension and morbid obesity. PAST SURGICAL HISTORY: section in 2002.Discectomy in November 2005 and left L3-4 discectomy with left L3-4 discectomy.In December 2010, she underwent a left L5-S1 microdiscectomy. Status post section and tubal ligation in 2007. PAST FAMILY HISTORY: Noncontributory. REVIEW OF SYSTEMS: Neurologic: As above. Respiratory: Negative. Cardiovascular: Negative. Endocrine: Negative. Gastrointestinal: Negative. Mental status/psych: Negative. Integumentary: Negative. Eyes: Negative. ENT: Negative. Constitutional: Negative. : Negative. PHYSICAL EXAMINATION: The patient is a well-developed, well-nourished female, obese, and in no apparent distress. Height: 5 feet, 10-1/2 inches. Weight: 330 lb. Neck: Supple. Full range of motion. HEENT: Within normal limits. Skin: Dry and intact. Lungs: Clear. Heart: Regular rate and rhythm. Abdomen: Positive bowel sounds, soft. Extremities: No clubbing, cyanosis, or edema. The patient has 5/5 strength for the lower extremities bilaterally. Sensation is intact for the lower extremities bilaterally. Negative straight leg raising bilaterally and symmetrically. Positive tenderness to palpation of the left sacroiliac joint, but she has a mildly positive Gaeslen's test. There are multiple trigger points along the left quadratus lumborum, PSIS, and left lumbar paraspinous musculature. ASSESSMENT: Left hip pain.Post lumbar laminectomy syndrome.Presumed sacroiliitis.Degenerative disc disease at L5-S1.Previous myocardial infarction, May 19, 2011.Morbid obesity.Hypertension. PLAN: At this time, will check a drug screen. Will take over writing for Vicodin 10 mg five per day as needed, giving her two weeks at a time.Will put her on Robaxin as an antispasmodic. Will put her on Trazodone at night for help with sleep and chronic pain.Will see the patient back in the near future and assess her progress at that time.She may or may not be a candidate for epidural injections, but we will discuss this at future visits. DICTATED BY: Chris Randle cc:Rufino Becker MD (Alex) [facility] - Dr Randle TR: rodrigo DR: DE: ED: 11/08/2011 09:31 mn JOB#: [id number] [Electronically Signed on 11.08.2011 04:59 pm] Chris Randle MD </br> 11/05/2011 [Electronically Signed on 11.08.2011 04:59 pm] Chris Randle MD [facility] Vital Signs Encounters Location Location Details Encounter Type Encounter Number Reason For Visit Attending Provider ADM Date DC Date Status Source [facility] [address] [place] [address] [id number] adrian lyon mm 11/05/2011 Active [facility] [address] [place] [address] [id number] adrian lyon mm 12/31/2011 [facility] [id number] adrian lyon mm 03/03/2012 Active [facility] [id number] KERI LYON MM 06/09/2012 Active [facility] [id number] adrian lyon mm 08/11/2012 Active [facility] [address] [place] [address] [id number] SONALI MM, TS Chris Randle 11/17/2012 Active [facility] [id number] sonali mm, dm CHRIS RANDLE 01/12/2013 01/12/2013 Active [facility] [id number] [place] [address] [id number] SONALI MM, DM Chris Randle 04/27/2013 Active [facility] [id number] [place] [address] [id number] SAMMY MM, TS Chris Randle 07/20/2013 Active [facility] [id number] [place] [address] [id number] SONALI MM, DM Chris Randle 09/14/2013 Active [facility] [id number] SONALI MM, DM CHRIS RANDLE 11/23/2013 Active [facility] [address] [place] [address] [id number] FACET INJECTSAMMY PT, 3 PM APPT PER , (JUNIOR), Chris Randle 11/29/2013 Active [facility] [id number] bilat L4-5, L5-S1 Facet Injections CHRIS RANDLE 12/22/2013 Active [facility] 8[facility] [id number] bilat L4-5, L5-S1 Facet Injections Chris Randle 01/10/2014 Active [facility] [id number] FOLLOW UP, CHRIS RANDLE 02/07/2014 Active [facility] [id number] EVAL FOR USGI LUMBAR/ DINA GERTKEN 02/07/2014 Active [facility] [id number] PAIN DINA GERTKEN 02/07/2014 02/07/2014 Active [facility] [id number] SONALI JEFFERSON, DM CHRIS RANDLE 02/22/2014 Active [facility] [address] [facility] [id number] USGI LUMBAR Dina Gertken 02/24/20142013 Active [facility] [id number] SONALI JEFFERSON, DM CHRIS RANDLE 04/12/2014 Active [facility] [id number] [facility] [id number] SONALI Randle 07/05/2014 Discharged [facility] [id number] SONALI RANDLE 08/16/2014 Active [facility] [id number] 3 MONTH FOLLOW UP CHRIS RANDLE 11/03/2014 Active [facility] 8[address] [facility] [id number] FOLLOW UP Chris Randle 02/01/2015 02/01/2015 Active [facility] [id number] WEEK FOLLOW UP CHRIS RANDLE 05/26/2015 Active [facility] Procedures Plan of Care Social History Assessment and Plan Family History Value Date Source Advance Directives Order Name Results Value Date Source
--- NOTE | 2016-11-18 22:37 | ED Lower Extremity ---
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 REPORTS SHE HEARD A "POP ET CRUNCH" WHEN LANDING. Nursing Sepsis Screen: No Definite Risk Source: patient Exam Limitations: no limitations History of Present Illness Time seen by provider: 22:37 Initial Comments 35-year-old female patient presents to the emergency department complaints of left knee pain after jumping during a softball game just prior to arrival. Patient reports feeling a popping crunch. States she tried to continue playing. Jump began. Had increased pain. Onset: just prior to arrival Pain/Injury Location: left knee Method of Injury: sports injury Modifying Factors: Improves With Immobilization, Worse With Movement Allergies and Home Medications Allergies Coded Allergies: No Known Drug Allergies (Unverified , 11/09/14) Home Medications Hydrochlorothiazide 12.5 Mg Cap 25 MG PO DAILY (Reported) Morphine Sulfate 15 Mg Tablet 15 MG PO TID (Reported) Oxycodone Hcl/Acetaminophen 1 Tab Tablet 1 TAB PO Q6H (Reported) Constitutional: no symptoms reported Respiratory: no symptoms reported Cardiovascular: no symptoms reported Musculoskeletal: see HPINo back pain, joint pain joint swellingNo neck pain Skin: No change in color, No lumps Psychiatric/Neurological: No Symptoms Reported All Other Systems Reviewed Negative Unless Noted: Yes (Negative excepted noted.) Past Kftsbyz-Kupyeb-Nfwghb Hx Patient Social History Alcohol Use: Denies Use Recreational Drug Use: No Smoking Status: Current Everyday Smoker Type Used: Cigarettes 2nd Hand Smoke Exposure: No Recent Foreign Travel: No Contact w/Someone Who Travel: No Recent Infectious Disease Expo: No Recent Hopitalizations: No Surgeries HX Surgeries: Yes (BACK) Surgeries: Section, Orthopedic, Tubal Ligation Respiratory Hx Respiratory Disorders: No Cardiovascular Hx Cardiac Disorders: Yes Cardiac Disorders: Hypertension Neurological Hx Neurological Disorders: No Genitourinary Hx Genitourinary Disorders: No Gastrointestinal Hx Gastrointestinal Disorders: No Musculoskeletal Hx Musculoskeletal Disorders: Yes (multiple left knee injuries) Musculoskeletal Disorders: Chronic Back Pain Endocrine Hx Endocrine Disorders: No Cancer Hx Cancer: No Psychosocial Hx Psychiatric Problems: No Reviewed Nursing Assessment Reviewed/Agree w Nursing PMH: Yes Family Medical History Significant Family History: No Pertinent Family Hx, Cancer Physical Exam Vital Signs Vital Sign - Last 12Hours 11/18/16 21:41 Temp 99.8 Pulse 109 Resp 20 B/P 144/100 Pulse Ox 99 O2 Delivery Room Air Capillary Refill : Less Than 3 Seconds General Appearance: WD/WN no apparent distress Cardiovascular: normal peripheral pulses no edema Hips: bilateral hip non-tender, bilateral hip normal inspection, bilateral hip normal range of motion, bilateral hip no evidence of injury Legs: bilateral leg non-tender, bilateral leg normal inspection, bilateral leg normal range of motion, bilateral leg no evidence of injury Knees: right knee non-tender, right knee normal inspection, right knee normal range of motion, right knee no evidence of injury, left knee bone tenderness ( lateral left knee), left knee joint effusion, left knee pain, left knee soft tissue tenderness, left knee swelling Ankles: bilateral ankle non-tender, bilateral ankle normal inspection, bilateral ankle normal range of motion, bilateral ankle no evidence of injury Feet: bilateral foot non-tender, bilateral foot normal inspection, bilateral foot normal range of motion, bilateral foot no evidence of injury Neurologic/Tendon: normal sensation normal motor functions normal tendon functions responds to pain no evidence tendon injury Neurologic/Psychiatric: no motor/sensory deficits alert normal mood/affect oriented x 3 Skin: normal color warm/dry Progress/Results/Core Measures Results/Orders My Orders Orders-LILIA PRINCE Knee, Left, 3 Views (11/18/16 21:45) Crutches (11/18/16 22:56) Knee Immobilizer (11/18/16 22:56) Vital Signs/I&O Vital Sign - Last 12Hours 11/18/16 11/18/16 21:41 23:20 Temp 99.8 Pulse 109 0 Resp 20 0 B/P 144/100 Pulse Ox 99 0 O2 Delivery Room Air Blood Pressure Mean: 115 Diagnostic Imaging Diagonstic Imaging: Xray Plain Films/CT/US/NM/MRI: knee Comments No evidence of bony abnormality. Reviewed: Reviewed/Discussed (with Derek Matthew MD.) Departure Communication Progress Notes Diagnostic findings discussed with the patient. Patient continues to refuse pain medication. States she has Percocet in her purse that she can use later. Patient placed in the immobilizer and given crutches. Patient instructed to follow-up with Kimberly Menendez as an outpatient at [facility] for recheck, final x-ray report, and possible need for outpatient MRI. Impression Impression: Primary Impression: Sprain of knee Qualified Code: S83.92XA - Sprain of unspecified site of left knee, initial encounter Disposition: HOME, SELF-CARE Condition: Improved Departure-Patient Inst. Decision time for Depature: 23:03 Referrals: [facility] (PCP/Family) Primary Care Physician Patient Instructions: Knee Sprain (DC) Add. Discharge Instructions: All discharge instructions reviewed with patient and/or family. Voiced understanding. Continue usual home medications. Ibuprofen 800 mg by mouth every 8 hours as needed for pain. Elevate left knee on pillows, ice pack for 20 minute intervals 6 times daily for 3 days. Knee brace and crutches as instructed for pain. Activity as tolerated. Follow-up with Kimberly Menendez as an outpatient for recheck and possible need for outpatient MRI of the left knee. Call for appointment time. Return to the emergency department for worsened symptoms or any other concerns. Work/School Note: Work Release Form Date Seen in the Emergency Department: Nov 18, 2016 Return to Work: Nov 20, 2016 Other Restrictions Listed Below: Elevate the left lower extremity for 2- 3 days LILIA PRNICE Nov 18, 2016 22:37
[2016-11-18 23:20] VITALS: BP 0/0
--- NOTE | 2016-11-19 08:14 | Diagnostic Imaging Report ---
INDICATION: Left knee pain AP, oblique, and lateral views of left knee are obtained. No fracture or acute bony abnormality is seen. There is no significant degenerative change. There is no joint effusion. IMPRESSION: Negative left knee. Dictated by: Dictated on workstation # [id number]
== END 2016-11-18 23:21 | disposition home or self-care (01) ==
LOC: EDUNIT# 21:03 → ER 21:05
DX: S83.92XA Sprain of unspecified site of left knee, initial encounter (principal); F17.210 Nicotine dependence, cigarettes, uncomplicated; X50.3XXA Overexertion from repetitive movements, initial encounter; Y93.64 Activity, baseball; Y92.320 Baseball field as the place of occurrence of the external cause; Y99.8 Other external cause status
CPT/HCPCS: 73562; 99283

== ENCOUNTER 2017-02-24 16:03 | Outpatient (RCR) | payer BC | END 2017-03-19 | disposition home or self-care (01) | PROVIDERS: ATTEND Physician Assistant Medical | DX: M25.562 Pain in left knee (principal); Z98.890 Other specified postprocedural states ==

== ENCOUNTER → 2018-02-16 | Outpatient (CLI) | payer BC ==
--- NOTE | 2018-02-17 12:21 | Diagnostic Imaging Report ---
INDICATION: Routine screening. No prior mammograms are available for comparison. This is a baseline study. 2-D and 3-D bilateral screening mammography was performed with CAD. Both breasts are heterogeneously dense, limiting the sensitivity of mammography. No mass or malignant-appearing micro-calcifications are seen. There are benign calcifications present. The axillae are unremarkable. Impression: BI-RADS category 2 No mammographic features suspicious for malignancy are identified. ACR BI-RADS Category 2: Benign findings. Result letter will be mailed to the patient. Note: At least 10% of breast cancer is not imaged by mammography. Dictated by: Dictated on workstation # [id number]
== END ==
LOC: RAD 15:37
DX: Z12.31 Encounter for screening mammogram for malignant neoplasm of breast (principal)
CPT/HCPCS: 77067

== ENCOUNTER 2018-09-19 11:26 | Emergency (ER) | payer OTHER, BC | END 2018-09-19 12:40 | disposition home or self-care (01) | LOC: ER 11:26 ==

== ENCOUNTER → 2018-12-04 | Outpatient (CLI) | payer BC ==
--- NOTE | 2018-12-04 16:09 | Diagnostic Imaging Report ---
INDICATION: Left knee pain and swelling. TIME OF EXAM: 03:32 p.m. FINDINGS: Three views of the left knee demonstrate postop changes of ACL repair. Alignment is normal. Joint spaces are well maintained. The articular surfaces are smooth. No fracture, dislocation, or effusion is seen. IMPRESSION: Postop changes. No acute abnormality is detected. Dictated on workstation # [id number]
== END ==
LOC: RAD 15:12
PROVIDERS: ATTEND Nurse Practitioner Family
DX: M25.462 Effusion, left knee (principal); Z98.890 Other specified postprocedural states
CPT/HCPCS: 73562

== ENCOUNTER → 2019-10-25 | Outpatient (CLI) | payer BC ==
--- NOTE | 2019-10-25 19:28 | Diagnostic Imaging Report ---
INDICATION: Left shoulder injury with pain AP, oblique and transscapular views of the left shoulder are obtained. FINDINGS: No acute fracture or dislocation is identified. No abnormal lytic or sclerotic focus is seen, and there is no radiopaque foreign body. IMPRESSION: No acute abnormality. Dictated by: Dictated on workstation # [id number]
== END ==
LOC: RAD 16:21
PROVIDERS: ATTEND Nurse Practitioner Family
DX: S49.92XA Unspecified injury of left shoulder and upper arm, initial encounter (principal)
CPT/HCPCS: 73030

== ENCOUNTER 2020-03-17 04:37 | Emergency (ER) | payer BC ==
[~2020-03-17] VITALS: Ht 180 cm; Wt 122.0 kg
[2020-03-17] MEDS ORDERED: LACTATED RINGERS 1,000 ML IV ONE (04:52)
[2020-03-17 04:58] LABS: BASOPHILS % (AUTO) 0 % (0-10); EOSINOPHILS # (AUTO) 0.1 10^3/uL (0.0-0.3); EOSINOPHILS % (AUTO) 1 % (0-10); HEMATOCRIT 42 % (35-52); HEMOGLOBIN 14.2 G/DL (11.5-16.0); LYMPHOCYTES # (AUTO) 2.4 X 10^3 (1.0-4.0); LYMPHOCYTES % (AUTO) 21 % (12-44); MEAN CORPUSCULAR HEMOGLOBIN 30 PG (25-34); MEAN CORPUSCULAR HGB CONC 34 G/DL (32-36); MEAN CORPUSCULAR VOLUME 88 FL (80-99); MEAN PLATELET VOLUME 10.3 FL (7.4-10.4); MONOCYTES # (AUTO) 0.7 X 10^3 (0.0-1.0); MONOCYTES % (AUTO) 6 % (0-12); NEUTROPHILS # (AUTO) 8.3 X 10^3 (1.8-7.8); NEUTROPHILS % (AUTO) 72 % (42-75); PLATELET COUNT 280 10^3/uL (130-400); RED CELL DISTRIBUTION WIDTH 13.2 % (10.0-14.5); WHITE BLOOD COUNT 11.5 10^3/uL (4.3-11.0)
[2020-03-17 05:00] LABS: BILIRUBIN,URINE NEGATIVE (NEGATIVE); CLARITY,URINE SL CLOUDY; COLOR,URINE YELLOW; GLUCOSE, URINE (UA) NEGATIVE (NEGATIVE); KETONES,URINE NEGATIVE (NEGATIVE); LEUKOCYTE ESTERASE ,URINE NEGATIVE (NEGATIVE); NITRITE,URINE NEGATIVE (NEGATIVE); PH,URINE 5.5 (5-9); PROTEIN,URINE NEGATIVE (NEGATIVE)
[2020-03-17] MEDS ORDERED: KETOROLAC 30 MG/ML VIAL IVP ONE (05:00)
[2020-03-17] MEDS ORDERED: ONDANSETRON 4 MG/2 ML (SDV) Z0FRAN IVP ONE (05:00)
--- NOTE | 2020-03-17 05:05 | ED GU-Female ---
General Chief Complaint: Abdominal/GI Problems Stated Complaint: POSS KIDNEY STONE,BACK PAIN Nursing Triage Note: patient complaint of back/side pain since friday night. states burning with urination Nursing Sepsis Screen: No Definite Risk Source: patient History of Present Illness Date Seen by Provider: Mar 17, 2020 Time Seen by Provider: 04:50 Initial Comments PT ARRIVES VIA POV FROM HOME C/O LOWER BACK AND BILATERAL FLANK PAIN SINCE FRIDAY MORNING PAIN COMES AND GOES ,BUT HAS BEEN CONSTANT AND SEVERE SINCE 99 THIS AM NO RELIEF WITH PERCOCET AT 0130 ( TAKES FOR CHRONIC BACK PAIN, BUT STATES THIS PAIN IS NOT LIKE HER CHRONIC BACK PAIN ) C/O SEVERE BURNING WITH URINATION SINCE FRIDAY WELL + NAUSEA, NO VOMITING NO DIARRHEA NO FEVER NO RADIATION OF PAIN NO PARESTHESIAS OR MOTOR DEFICITS LMP 1 WEEK AGO. NORMAL. S/P BTL PCP: DR. RICHMOND Allergies and Home Medications Allergies Coded Allergies: sulfamethoxazole (Verified Allergy, Intermediate, RASH, 03/17/20) trimethoprim (Verified Allergy, Intermediate, RASH, 03/17/20) Home Medications Hydrochlorothiazide 12.5 Mg Cap, 25 MG PO DAILY, (Reported) Morphine Sulfate 15 Mg Tablet, 15 MG PO TID, (Reported) Oxycodone Hcl/Acetaminophen 1 Tab Tablet, 1 TAB PO Q6H, (Reported) Patient Home Medication List Home Medication List Reviewed: Yes Review of Systems Review of Systems Constitutional: no symptoms reported Respiratory: no symptoms reported Cardiovascular: no symptoms reported Gastrointestinal: see HPI; No abdominal pain, No constipation, No diarrhea; nausea; No vomiting Genitourinary: see HPI, burning, dysuria, flank pain Musculoskeletal: see HPI, back pain Skin: no symptoms reported Psychiatric/Neurological: No Symptoms Reported Endocrine: No Symptoms Reported Hematologic/Lymphatic: No Symptoms Reported Past Mxhxhew-Uafexh-Ixaeec Hx Past Med/Social Hx: Reviewed and Corrections made Patient Social History Alcohol Use: Denies Use Recreational Drug Use: Yes (DENIES, BUT UDS + FOR THC 03/17/20) Drug of Choice: DENIES, BUT UDS + FOR THC 03/17/20 Smoking Status: Current Everyday Smoker Type Used: Cigarettes 2nd Hand Smoke Exposure: Yes Recent Foreign Travel: No Contact w/Someone Who Travel: No Recent Infectious Disease Expo: No Recent Hopitalizations: No Physical Abuse: No Sexual Abuse: No Mistreated: No Fear: No Seasonal Allergies Seasonal Allergies: No Past Medical History Surgeries: Yes (BACK SURGERY X 2; L KNEE SCOPE; X 2) Section, Orthopedic, Tubal Ligation Respiratory: No Cardiac: Yes Hypertension Neurological: No Female Reproductive Disorders: Denies FREE LANCE MODEL History: Tubal Ligation Genitourinary: No Gastrointestinal: No Musculoskeletal: Yes (MULTIPLE LEFT KNEE INJURIES-LEFT KNEE SCOPE; BACK SURGERY X 2 ) Chronic Back Pain Endocrine: No HEENT: No Cancer: No Psychosocial: No Integumentary: No Blood Disorders: No Family Medical History No Pertinent Family Hx, Cancer Physical Exam Vital Signs Vital Signs - First Documented 03/17/20 04:42 Temp 36.3 Pulse 81 Resp 18 B/P (MAP) 122/83 (96) Pulse Ox 98 O2 Delivery Room Air Capillary Refill : Less Than 3 Seconds Height, Weight, BMI Height: 5'11.00" Weight: 290lbs. oz. 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, no motor/sensory deficits, alert, normal mood/affect, oriented x 3 Skin: normal color, warm/dry, tattoos/piercings (MULTIPLE TATTOOS) Progress/Results/Core Measures Suspected Sepsis Recent Fever Within 48 Hours: No Infection Criteria Present: None New/Unexplained Altered Menta: No Sepsis Screen: No Definite Risk SIRS Temperature: Pulse: 81 Respiratory Rate: 18 Laboratory Tests 03/17/20 04:50: White Blood Count 11.5H Blood Pressure 122 /83 Mean: 96 Laboratory Tests 03/17/20 04:50: Creatinine 0.83, Platelet Count 280, Total Bilirubin 0.5 Results/Orders Lab Results Laboratory Tests Test 03/17/20 04:45 03/17/20 04:50 Range/Units Urine Opiates Screen NEGATIVE NEGATIVE Urine Oxycodone Screen POSITIVE H NEGATIVE Urine Methadone Screen NEGATIVE NEGATIVE Urine Propoxyphene Screen NEGATIVE NEGATIVE Urine Barbiturates Screen NEGATIVE NEGATIVE Ur Tricyclic Antidepressants Screen NEGATIVE NEGATIVE Urine Phencyclidine Screen NEGATIVE NEGATIVE Urine Amphetamines Screen NEGATIVE NEGATIVE Urine Methamphetamines Screen NEGATIVE NEGATIVE Urine Benzodiazepines Screen NEGATIVE NEGATIVE Urine Cocaine Screen NEGATIVE NEGATIVE Urine Cannabinoids Screen POSITIVE H NEGATIVE White Blood Count 11.5 H 4.3-11.0 10^3/uL Red Blood Count 4.78 4.35-5.85 10^6/uL Hemoglobin 14.2 11.5-16.0 G/DL Hematocrit 42 35-52 % Mean Corpuscular Volume 88 80-99 FL Mean Corpuscular Hemoglobin 30 25-34 PG Mean Corpuscular Hemoglobin Concent 34 32-36 G/DL Red Cell Distribution Width 13.2 10.0-14.5 % Platelet Count 280 130-400 10^3/uL Mean Platelet Volume 10.3 7.4-10.4 FL Neutrophils (%) (Auto) 72 42-75 % Lymphocytes (%) (Auto) 21 12-44 % Monocytes (%) (Auto) 6 0-12 % Eosinophils (%) (Auto) 1 0-10 % Basophils (%) (Auto) 0 0-10 % Neutrophils # (Auto) 8.3 H 1.8-7.8 X 10^3 Lymphocytes # (Auto) 2.4 1.0-4.0 X 10^3 Monocytes # (Auto) 0.7 0.0-1.0 X 10^3 Eosinophils # (Auto) 0.1 0.0-0.3 10^3/uL Basophils # (Auto) 0.0 0.0-0.1 10^3/uL Urine Color YELLOW Urine Clarity SL CLOUDY Urine pH 5.5 5-9 Urine Specific [place] 1.025 H 1.016-1.022 Urine Protein NEGATIVE NEGATIVE Urine Glucose (UA) NEGATIVE NEGATIVE Urine Ketones NEGATIVE NEGATIVE Urine Nitrite NEGATIVE NEGATIVE Urine Bilirubin NEGATIVE NEGATIVE Urine Urobilinogen 0.2 < = 1.0 MG/DL Urine Leukocyte Esterase NEGATIVE NEGATIVE Urine RBC (Auto) TRACE-L NEGATIVE Urine RBC 0-2 /HPF Urine WBC RARE /HPF Urine Squamous Epithelial Cells 10-25 H /HPF Urine Crystals NONE /LPF Urine Bacteria FEW H /HPF Urine Casts NONE /LPF Urine Mucus NEGATIVE /LPF Urine Culture Indicated NO Sodium Level 138 135-145 MMOL/L Potassium Level 4.5 3.6-5.0 MMOL/L Chloride Level 106 98-107 MMOL/L Carbon Dioxide Level 22 21-32 MMOL/L Anion Gap 10 5-14 MMOL/L Blood Urea Nitrogen 20 H 7-18 MG/DL Creatinine 0.83 0.60-1.30 MG/DL Estimat Glomerular Filtration Rate > 60 BUN/Creatinine Ratio 24 Glucose Level 94 70-105 MG/DL Calcium Level 9.4 8.5-10.1 MG/DL Corrected Calcium 9.1 8.5-10.1 MG/DL Total Bilirubin 0.5 0.1-1.0 MG/DL Aspartate Amino Transf (AST/SGOT) 19 5-34 U/L Alanine Aminotransferase (ALT/SGPT) 16 0-55 U/L Alkaline Phosphatase 41 40-136 U/L Total Protein 7.6 6.4-8.2 GM/DL Albumin 4.4 3.2-4.5 GM/DL Amylase Level 45 25-125 U/L Lipase 15 8-78 U/L Serum Test, Qualitative NEGATIVE NEGATIVE My Orders Orders - GIN RODRIGUEZ DO Ed Iv/Invasive Line Start (03/17/20 04:52) Urine Bedside (03/17/20 04:52) Monitor-Rhythm Ecg Trace Only (03/17/20 04:52) Ct Abd/Pelvis Wo(Kidney Stone) (03/17/20 04:52) Abdomen/Kub 1view (03/17/20 04:52) Amylase (03/17/20 04:52) Cbc With Automated Diff (03/17/20 04:52) Comprehensive Metabolic Panel (03/17/20 04:52) Hcg,Qualitative Serum (03/17/20 04:52) Lipase (03/17/20 04:52) Ua Culture If Indicated (03/17/20 04:52) Ed Iv/Invasive Line Start (03/17/20 04:52) Lactated Ringers (Lr 1000 Ml Iv Solution (03/17/20 04:52) Ondansetron Injection (Zofran Injectio (03/17/20 05:00) Drug Screen Stat (Urine) (03/17/20 04:58) Ketorolac Injection (Toradol Injection) (03/17/20 05:00) Orphenadrine Inj (Ed Only) (Norflex Inje (03/17/20 06:15) Medications Given in ED Current Medications Medications Dose Ordered Sig/Bryon Route Start Time Stop Time Status Last Admin Dose Admin Ketorolac Tromethamine 30 mg ONCE ONCE IVP 03/17/20 05:00 03/17/20 05:01 DC 03/17/20 05:05 30 MG Lactated Ringer's 1,000 ml @ 0 mls/hr Q0M ONCE IV 03/17/20 04:52 03/17/20 04:55 DC 03/17/20 05:05 0 MLS/HR Ondansetron HCl 4 mg ONCE ONCE IVP 03/17/20 05:00 03/17/20 05:01 DC 03/17/20 05:05 4 MG Vital Signs/I&O 03/17/20 04:42 Temp 36.3 Pulse 81 Resp 18 B/P (MAP) 122/83 (96) Pulse Ox 98 O2 Delivery Room Air Capillary Refill : Less Than 3 Seconds Blood Pressure Mean: 96 Progress Note : Progress Note PT GIVEN IV FLUIDS AND TORADOL WITH SIGNIFICANT IMPROVEMENT/RESOLUTION OF PAIN--PT NOW RESTING/SLEEPING QUIETLY Diagnostic Imaging Comments KUB--PER RADIOLOGIST REPORT AT 0550 IMPRESSION: 1. Nonobstructed small bowel gas pattern. 2. Large amount of colonic air and stool. Please correlate for constipation. CT ABDOMEN/PELVIS--PER [facility] VIA FAX AT 0606 NO ACUTE PROCESS, DEGENERATIVE CHANGES OF SPINE, DIVERTICULAR DISEASE, R OVARIAN CYST Reviewed: Reviewed by Me Departure Impression Primary Impression: Lower back pain Disposition: HOME, SELF-CARE Condition: Improved Departure-Patient Inst. Referrals: YASHIRA RICHMOND MD (PCP/Family) Primary Care Physician Patient Instructions: Low Back Pain (DC) Add. Discharge Instructions: MOIST HEAT TO AREA AT 20 MINUTE INTERVALS TAKE YOUR PERCOCET NEEDED FOLLOW UP WITH YOUR DR IN 2-3 DAYS IF NO BETTER All discharge instructions reviewed with patient and/or family. Voiced understanding. Scripts Tizanidine HCl (Tizanidine HCl) 4 Mg Tablet 4 MG PO TID, #15 TAB Prov: GIN RODRIGUEZ DO 03/17/20 Ketorolac Tromethamine (Ketorolac Tromethamine) 10 Mg Tablet 10 MG PO Q6H for Pain, #15 TAB Prov: GIN RODRIGUEZ DO 03/17/20 GIN RODRIGUEZ DO Mar 17, 2020 05:04
[2020-03-17 05:06] LABS: ALBUMIN 4.4 GM/DL (3.2-4.5)
[2020-03-17 05:07] LABS: AMYLASE 45 U/L (25-125); CHLORIDE 106 MMOL/L (98-107); POTASSIUM 4.5 MMOL/L (3.6-5.0); SODIUM 138 MMOL/L (135-145)
[2020-03-17 05:08] LABS: CALCIUM 9.4 MG/DL (8.5-10.1)
[2020-03-17 05:09] LABS: GLUCOSE 94 MG/DL (70-105); RBC,URINE 0-2 /HPF; TOTAL PROTEIN 7.6 GM/DL (6.4-8.2)
[2020-03-17 05:10] LABS: BACTERIA,URINE FEW /HPF; CARBON DIOXIDE 22 MMOL/L (21-32); WBC,URINE RARE /HPF
[2020-03-17 05:11] LABS: BILIRUBIN,TOTAL 0.5 MG/DL (0.1-1.0)
[2020-03-17 05:12] LABS: ALKALINE PHOSPHATASE 41 U/L (40-136)
[2020-03-17 05:13] LABS: CREATININE SERUM 0.83 MG/DL (0.60-1.30); GFR ESTIMATED > 60
[2020-03-17 05:14] LABS: BUN/CREATININE RATIO 24
[2020-03-17 05:16] LABS: ALANINE AMINOTRANSFERASE 16 U/L (0-55); LIPASE 15 U/L (8-78)
[2020-03-17 05:18] LABS: AMPHETAMINE SCREEN, URINE NEGATIVE (NEGATIVE); BARBITURATE SCREEN URINE NEGATIVE (NEGATIVE); BENZODIAZEPINES SCREEN URINE NEGATIVE (NEGATIVE); CANNABINOID SCREEN, URINE POSITIVE (NEGATIVE); COCAINE SCREEN URINE NEGATIVE (NEGATIVE); METHADONE STAT NEGATIVE (NEGATIVE); METHAMPHETAMINE SCREEN URINE S NEGATIVE (NEGATIVE); OPIATE SCREEN URINE NEGATIVE (NEGATIVE); OXYCODONE STAT POSITIVE (NEGATIVE); PROPOXYPHENE STAT NEGATIVE (NEGATIVE); TRICYCLIC ANTIDEPRESSANTS SCRE NEGATIVE (NEGATIVE)
--- NOTE | 2020-03-17 05:45 | Diagnostic Imaging Report ---
INDICATION: Left flank pain. COMPARISON: None FINDINGS: 2 supine radiographic views of the abdomen were obtained and shows nondistended loops of small bowel. Moderate air and stool is present scattered throughout the colon. There is no large collection of free intraperitoneal air. No unexpected extraosseous calcifications or radiopaque foreign bodies are seen. Osseous structures show no acute abnormalities. IMPRESSION: 1. Nonobstructed small bowel gas pattern. 2. Large amount of colonic air and stool. Please correlate for constipation. Dictated by: Dictated on workstation # [id number]
[2020-03-17] MEDS ORDERED: TIZA4TAB4 PO (06:14)
[2020-03-17] MEDS ORDERED: KETO10TA PO (06:14)
[2020-03-17] MEDS ORDERED: ORPHENADRINE 60 MG/2 ML (NORFLEX) AMP (ED ONLY) IV ONE (06:15)
[2020-03-17 06:34] VITALS: BP 120/78
--- NOTE | 2020-03-17 08:38 | Diagnostic Imaging Report ---
PROCEDURE: CT urinary tract, rule out kidney stone. TECHNIQUE: Multiple contiguous axial images were obtained through the abdomen and pelvis without the use of intravenous contrast. Auto Exposure Controls were utilized during the CT exam to meet ALARA standards for radiation dose reduction. INDICATION: Left flank pain and burning with urination. COMPARISON: None FINDINGS: Included portions of the lung bases are clear. CT ABDOMEN: Normal appendix is identified. Small bowel loops are nondistended. There is colonic diverticulosis, but no CT evidence of acute diverticulitis. No renal calculi are seen on either side. Ureters cannot be followed in their entirety, but no calculi are seen along the expected course of ureters. Additionally, there is no hydroureteronephrosis or other evidence of obstruction. Hypodense left renal cyst is noted. Otherwise, kidneys have an unremarkable noncontrast CT appearance. The spleen, pancreas, adrenal glands, and liver have an unremarkable noncontrast CT appearance. There is no loculated fluid collection, free fluid, nor free air within the abdomen. No abnormal mesenteric or retroperitoneal adenopathy is seen. Osseous structures show no acute abnormalities. CT PELVIS: Urinary bladder is unopacified. Right ovarian cyst measures 2.4 x 2.1 cm. No calculi are seen within urinary bladder. There is no loculated fluid collection, free fluid, nor free air within the pelvis. No abnormal adenopathy is seen. Osseous structures show no acute abnormalities IMPRESSION: 1. Unremarkable noncontrast CT of the kidneys and renal collecting systems. 2. Colonic diverticulosis, no CT evidence of acute diverticulitis. Dictated by: Dictated on workstation # [id number]
== END 2020-03-17 06:35 | disposition home or self-care (01) ==
LOC: EDUNIT# 04:37 → ER 04:40
DX: M54.5 Low back pain (principal); I10 Essential (primary) hypertension; G89.29 Other chronic pain; F17.210 Nicotine dependence, cigarettes, uncomplicated; Z79.891 Long term (current) use of opiate analgesic; Z88.2 Allergy status to sulfonamides; Z88.1 Allergy status to other antibiotic agents
CPT/HCPCS: 36415; 74018; 74176; 80053; 80306; 81000; 82150; 83690; 84703; 85025

== ENCOUNTER → 2021-05-25 | Outpatient (CLI) | payer BC ==
[~2021-05-25] MED LIST changes: +KETO10TA PO; +TIZA4TAB4 PO
--- NOTE | 2021-05-25 18:35 | Diagnostic Imaging Report ---
INDICATION: Postoperative check. Cough, shortness of breath, stuffy nose. Negative for Covid. EXAMINATION: 3 views of the chest 05/25/2021 FINDINGS: Heart and pulmonary vasculature normal. Lungs and pleural spaces clear. No infiltrates, effusions or pneumothorax. No acute osseous abnormality. IMPRESSION: 1. No acute process. Dictated by: Dictated on workstation # [id number]
== END ==
LOC: RAD 14:19
PROVIDERS: ATTEND Nurse Practitioner Family
DX: R05 Cough (principal); R06.02 Shortness of breath; Z86.16 Personal history of COVID-19
CPT/HCPCS: 71047